=== PATIENT | female | born 1940 | race Caucasian/White ===

== ENCOUNTER 2020-03-20 09:31 | Outpatient (REF) | payer MEDICARE, SELFPAY ==
[2020-03-20 10:43] LABS: MANUAL DIFF FLAG NO
[2020-03-20 10:48] LABS: Basophils Percent Auto 0.5 % (0-2); Eosinophils Absolute Auto 0.4 X10*3/uL (0.0-0.4); Eosinophils Percent Auto 4.4 % (0-4); Hematocrit 38.8 % (37-47); Hemoglobin 12.2 g/dl (12.0-16.0); Imm Gran Abs Auto 0.02 X10*3/uL (0.00-0.03); Imm Gran Pct Auto 0.2 % (0.0-0.4); Lymphocytes Absolute Auto 2.2 X10*3/uL (1.2-4.9); Lymphocytes Percent Auto 24.9 % (20-40); Mean Corpuscular HGB Conc 31.4 g/dl (31.0-35.0); Mean Corpuscular Hemoglobin 31.8 pg (27.0-33.0); Mean Platelet Volume 9.9 fL (9.4-12.3); Monocytes Absolute Auto 0.4 X10*3/uL (0.1-1.2); Monocytes Percent Auto 4.9 % (2-11); Neutrophils Absolute Auto 5.7 X10*3/uL (2.0-8.3); Neutrophils Percent Auto 65.1 % (45-73); Platelet Count 237 X10*3/uL (160-400); Red Blood Count 3.84 X10*6/uL (4.20-5.50); Red Cell Distribution Width 13.1 % (11.0-16.0); White Blood Count 8.7 X10*3/uL (4.8-10.8)
[2020-03-20 11:08] LABS: Glucose Urine UA NEG (NEG); Leukocyte Esterase Urine 1+ (NEG); Nitrite Urine NEG (NEG); PH 5.5 (5.0-8.0); Urine Blood NEG (NEG); Urine Ketones NEG (NEG); Urine Protein NEG (NEG-TRACE)
[2020-03-20 11:09] LABS: Appearance Urine CLEAR; Color Urine STRAW
[2020-03-20 11:24] LABS: Bacteria Urine TRACE /LPF; RBC Urine 0 /HPF (0); Squamous Epithelial Cell Urine TRACE /LPF; WBC Urine 0-2 /HPF (0-4)
[2020-03-20 11:42] LABS: Alanine Aminotransferase 9 U/L (0-31); Alkaline Phosphatase 84 U/L (39-117); Anion Gap 11 (12-20); Aspartate Amino Transferase 14 U/L (5-31); Bilirubin Total 0.5 mg/dL (0.0-1.0); Blood Urea Nitrogen 16 mg/dL (9-16); Calcium 8.9 mg/dL (8.4-10.2); Carbon Dioxide 30 mmol/L (22-29); Chloride 102 mmol/L (96-108); Cholesterol 141 mg/dL; Estimated Glomerular Filt Rate > 60; Glucose Fasting 120 mg/dL (60-99); HDL Cholesterol 54 mg/dL; LDL Cholesterol Calculated 67 mg/dl; Potassium 4.2 mmol/l (3.3-5.1); Sodium 139 mmol/L (135-145); Total Protein 7.1 g/dL (6.5-8.0); Triglycerides 102 mg/dL
[2020-03-20 11:51] LABS: Free T4 (Free Thyroxine) 1.21 ng/dL (0.71-1.85); Thyroid Stimulating Hormone 4.29 mIU/mL (0.32-4.0); Vitamin D 25-OH Total 32.2 ng/mL (>30)
[2020-03-20 11:59] LABS: Creatinine Urine 23.78 mg/dL; Microalbumin Urine < 5.0 mg/L
[2020-03-20 12:18] LABS: Estimated Average Glucose 151 mg/dL; Hemoglobin A1c % 6.9 %
[2020-03-20 13:07] LABS: Folate 5.6 ng/mL (> or = 4.0); Vitamin B12 210 pg/mL (200-900)
== END 2020-03-20 09:32 | disposition home or self-care (01) ==
LOC: HO.LAB 09:31
PROVIDERS: PCP Internal Medicine; Visit Provider Internal Medicine
DX: E11.9 Type 2 diabetes mellitus without complications (principal); E78.00 Pure hypercholesterolemia, unspecified; I10 Essential (primary) hypertension; E03.9 Hypothyroidism, unspecified; E66.01 Morbid (severe) obesity due to excess calories; R20.2 Paresthesia of skin; J44.9 Chronic obstructive pulmonary disease, unspecified; G25.81 Restless legs syndrome; E55.9 Vitamin D deficiency, unspecified
CPT/HCPCS: 36415; 80053; 80061; 81001; 81003; 82043; 82306; 82607; 82746; 83036; 84439; 84443; 85025; 87086

== ENCOUNTER 2020-06-12 09:34 | Outpatient (REF) | payer MEDICARE, SELFPAY ==
[2020-06-12 10:24] LABS: MANUAL DIFF FLAG NO
[2020-06-12 10:32] LABS: Basophils Percent Auto 0.5 % (0-2); Eosinophils Absolute Auto 0.2 X10*3/uL (0.0-0.4); Eosinophils Percent Auto 2.2 % (0-4); Hematocrit 39.7 % (37-47); Hemoglobin 12.4 g/dl (12.0-16.0); Imm Gran Abs Auto 0.02 X10*3/uL (0.00-0.03); Imm Gran Pct Auto 0.2 % (0.0-0.4); Lymphocytes Absolute Auto 2.3 X10*3/uL (1.2-4.9); Lymphocytes Percent Auto 27.1 % (20-40); Mean Corpuscular HGB Conc 31.2 g/dl (31.0-35.0); Mean Corpuscular Volume 99.3 fL (80-98); Mean Platelet Volume 10.1 fL (9.4-12.3); Monocytes Absolute Auto 0.5 X10*3/uL (0.1-1.2); Monocytes Percent Auto 5.8 % (2-11); Neutrophils Absolute Auto 5.4 X10*3/uL (2.0-8.3); Neutrophils Percent Auto 64.2 % (45-73); Platelet Count 217 X10*3/uL (160-400); Red Cell Distribution Width 13.3 % (11.0-16.0); White Blood Count 8.3 X10*3/uL (4.8-10.8)
[2020-06-12 10:55] LABS: Estimated Average Glucose 166 mg/dL; Hemoglobin A1c % 7.4 %
[2020-06-12 11:01] LABS: Glucose Urine UA NEG (NEG); Leukocyte Esterase Urine NEG (NEG); Nitrite Urine NEG (NEG); Urine Blood TRACE (NEG); Urine Ketones NEG (NEG); Urine Protein NEG (NEG-TRACE)
[2020-06-12 11:08] LABS: Alanine Aminotransferase 8 U/L (0-31); Albumin Level 3.8 g/dL (3.5-5.0); Alkaline Phosphatase 89 U/L (39-117); Anion Gap 10 (12-20); Aspartate Amino Transferase 13 U/L (5-31); Bilirubin Total 0.4 mg/dL (0.0-1.0); Blood Urea Nitrogen 15 mg/dL (9-16); Calcium 8.5 mg/dL (8.4-10.2); Carbon Dioxide 36 mmol/L (22-29); Chloride 99 mmol/L (96-108); Cholesterol 137 mg/dL; Estimated Glomerular Filt Rate > 60; Glucose Fasting 115 mg/dL (60-99); HDL Cholesterol 50 mg/dL; LDL Cholesterol Calculated 66 mg/dl; Potassium 3.9 mmol/l (3.3-5.1); Sodium 141 mmol/L (135-145); Triglycerides 109 mg/dL
[2020-06-12 11:09] LABS: Appearance Urine CLEAR; Color Urine YELLOW
[2020-06-12 11:20] LABS: Microalbumin Urine < 5.0 mg/L
[2020-06-12 11:51] LABS: Mucus Urine TRACE /LPF; Squamous Epithelial Cell Urine 1+ /LPF
[2020-06-12 12:10] LABS: Free T4 (Free Thyroxine) 1.17 ng/dL (0.71-1.85); Thyroid Stimulating Hormone 4.22 uIU/mL (0.32-4.0); Vitamin D 25-OH Total 34.2 ng/mL (>30)
== END 2020-06-12 09:35 | disposition home or self-care (01) ==
LOC: HO.LAB 09:34
PROVIDERS: PCP Internal Medicine; Visit Provider Internal Medicine
DX: Z20.822 Contact with and (suspected) exposure to COVID-19 (principal); E11.9 Type 2 diabetes mellitus without complications; I10 Essential (primary) hypertension; J44.9 Chronic obstructive pulmonary disease, unspecified; E78.00 Pure hypercholesterolemia, unspecified; E03.9 Hypothyroidism, unspecified; E55.9 Vitamin D deficiency, unspecified
CPT/HCPCS: 36415; 80053; 80061; 81001; 81003; 82043; 82306; 83036; 84439; 84443; 85025; U0003

== ENCOUNTER 2020-07-08 | Outpatient (REF) | payer MEDICARE, SELFPAY | END 2020-07-08 00:01 | disposition home or self-care (01) | LOC: HO.VC | PROVIDERS: Visit Provider Internal Medicine | DX: Z23 Encounter for immunization (principal) | CPT/HCPCS: 0011A ==

== ENCOUNTER 2020-08-05 | Outpatient (REF) | payer MEDICARE, SELFPAY | END 2020-08-05 00:01 | disposition home or self-care (01) | LOC: HO.VC | PROVIDERS: Visit Provider Internal Medicine | DX: Z23 Encounter for immunization (principal) | CPT/HCPCS: 0012A ==

== ENCOUNTER 2020-11-05 15:35 | Outpatient (REF) | payer MEDICARE, SELFPAY ==
--- NOTE | ~2020-11-05 | XR_ITS ---
EXAMINATION: LEFT SHOULDER AND LEFT RIBS. CLINICAL INFORMATION: Seen. COMPARISON: None TECHNIQUE: 4 views left shoulder. 4 views chest and left RIBS. FINDINGS: Left shoulder: There is mild reduction of glenohumeral and AC joint space there is no visible acute fracture, dislocation or subluxation seen. The soft tissues are normal. Chest and left RIBS: The lungs are well-expanded and clear of acute process. Heart size and pulmonary vascularity is normal. Multiple views of left ribs reveal no visible fracture or bony abnormality. The soft tissues are unremarkable. XR/XR ribs LT min 3V w CXR1V IMPRESSION: Mild degenerative changes left shoulder. No visible acute fracture or dislocation seen. Unremarkable chest exam. No visible left rib fractures seen.
--- NOTE | ~2020-11-05 | XR_ITS ---
EXAMINATION: LEFT SHOULDER AND LEFT RIBS. CLINICAL INFORMATION: Seen. COMPARISON: None TECHNIQUE: 4 views left shoulder. 4 views chest and left RIBS. FINDINGS: Left shoulder: There is mild reduction of glenohumeral and AC joint space there is no visible acute fracture, dislocation or subluxation seen. The soft tissues are normal. Chest and left RIBS: The lungs are well-expanded and clear of acute process. Heart size and pulmonary vascularity is normal. Multiple views of left ribs reveal no visible fracture or bony abnormality. The soft tissues are unremarkable. XR/XR shoulder LT min 2V IMPRESSION: Mild degenerative changes left shoulder. No visible acute fracture or dislocation seen. Unremarkable chest exam. No visible left rib fractures seen.
== END 2020-11-05 15:36 | disposition home or self-care (01) ==
LOC: HO.XRAY 15:35
PROVIDERS: PCP Internal Medicine; Visit Provider Internal Medicine
DX: R07.81 Pleurodynia (principal); M25.511 Pain in right shoulder
CPT/HCPCS: 71101; 73030

== ENCOUNTER 2021-06-17 10:07 | Outpatient (REF) | payer MEDICARE, SELFPAY ==
--- NOTE | ~2021-06-17 | MM_ITS ---
EXAMINATION: MM SCREENING DIGITAL BREAST TOMOSYNTHESIS, BILATERAL CLINICAL INFORMATION: Screening. Asymptomatic. The lifetime risk of breast cancer based on the Tyrer-Cuzick Model is 1.0%. COMPARISON: Mammography: June 09, 2016 and studies dating back to January 10, 2012 TECHNIQUE: Digital breast tomosynthesis is performed in both the craniocaudal and mediolateral oblique views along with computer-aided detection (CAD). Synthesized 2D images are generated from the tomosynthesis. FINDINGS: The breasts are almost entirely fatty (ACR BI-RADS breast composition Category a). There are no significant masses, abnormal calcifications, or other abnormalities. MM/MM tomosynthesis screening BI IMPRESSION: There are no significant changes from prior study. ASSESSMENT: BI-RADS 1: Negative RECOMMENDATION: Routine annual mammography screening. This patient's information was entered into a reminder system with a target due date for their next mammogram.
--- NOTE | ~2021-06-17 | MM_ITS ---
EXAMINATION: BONE DENSITOMETRY CLINICAL INDICATION: Asymptomatic menopausal state. COMPARISON: Baseline BD dated 09/16/2008. TECHNIQUE: Using a [employer] DXA System (software version: 13.1) manufactured by [employer], dual-energy x-ray absorptiometry was performed of the lumbar spine and right hip. The images are of good technical quality. Summary results are attached. FINDINGS: AP SPINE L1-L4: There is mild dextrocurvature and multilevel degenerative changes which may cause overestimation of the lumbar bone mineral density. Current: BMD 1.514 g/cm2, Z-score 3.8, T-score 2.8, normal, 27.2% increase from baseline (<5% change is not significant). Baseline: BMD 1.190 g/cm2. RIGHT FEMUR, NECK: Current: BMD 0.520 g/cm2, Z-score -2.2, T-score -3.7, osteoporosis. Baseline: BMD 0.696 g/cm2. RIGHT FEMUR, TOTAL: Current: BMD 0.462 g/cm2, Z-score -3.0, T-score -4.3, osteoporosis, 40.1% decrease from baseline (<5% change is not significant). Baseline: BMD 0.771 g/cm2. IDENTIFIED RISK FACTORS: Rheumatoid arthritis, history of fracture (adult), height loss, low calcium intake, family history (parental hip fracture). Early menopause, secondary osteoporosis. HISTORY OF FRACTURE: Femur/hip. Elbow. MEDICATIONS: Calcium supplements or multivitamin, vitamin D. MM/XR DEXA axial skeleton IMPRESSION: 1. DIAGNOSIS: Osteoporosis based on the lowest T-score value of -4.3 in the total femur applying World Health Organization criteria. 2. 10-YEAR FRACTURE RISK PREDICTION, FRAX: According to the guidelines, FRAX calculation should only be performed on patients in the osteopenia bone density category. 3. Treatment Recommendations: NOF guidelines recommend consideration for treatment in postmenopausal women and men age 50 and older presenting with the following: -A hip or vertebral (clinical or morphometric) fracture. -T-score less than or equal to -2.5 at the femoral neck or spine after appropriate evaluation to exclude secondary causes. -Low bone mass at the hip or spine and a 10-year fracture probability by FRAX of greater than or equal to 3% for hip fracture or greater than or equal to 20% for major osteoporotic fracture based on the [place] adapted WHO algorithm. 4. Other Recommendations: All treatment decisions require clinical judgment and consideration of individual patient factors, including patient preferences, comorbidities, previous drug use, risk factors not captured in the FRAX model (e.g. frailty, falls, vitamin D deficiency, increased bone turnover, interval significant decline in bone density) and possible under or overestimation of fracture risk by FRAX. Additional medical evaluation for secondary cause of low bone mineral density may be appropriate. FUTURE SCAN RECOMMENDATION: People with diagnosed cases of osteoporosis or at high risk for fracture should have regular bone mineral density tests. For patients eligible for Medicare, routine testing is allowed once every 2 years. The testing frequency can be increased to one year for patients who have rapidly progressing disease, those who are receiving or discontinuing medical therapy to restore bone mass, or have additional risk factors.
== END 2021-06-17 10:08 | disposition home or self-care (01) ==
LOC: HO.MAMMO 10:07
PROVIDERS: Visit Provider Nurse Practitioner Family
DX: Z12.31 Encounter for screening mammogram for malignant neoplasm of breast (principal); Z13.820 Encounter for screening for osteoporosis; M81.0 Age-related osteoporosis without current pathological fracture; Z78.0 Asymptomatic menopausal state; Z79.899 Other long term (current) drug therapy; Z87.81 Personal history of (healed) traumatic fracture
CPT/HCPCS: 77063; 77067; 77080

== ENCOUNTER 2021-07-27 08:56 | Outpatient (REF) | payer MEDICARE, SELFPAY ==
[2021-07-27 09:23] LABS: MANUAL DIFF FLAG NO
[2021-07-27 09:45] LABS: Basophils Percent Auto 0.4 % (0-2); Eosinophils Absolute Auto 0.3 X10*3/uL (0.0-0.4); Eosinophils Percent Auto 3.3 % (0-4); Hematocrit 40.4 % (37.0-47.0); Hemoglobin 12.6 g/dl (12.0-16.0); Imm Gran Abs Auto 0.05 X10*3/uL (0.00-0.03); Imm Gran Pct Auto 0.5 % (0.0-0.4); Lymphocytes Absolute Auto 2.4 X10*3/uL (1.2-4.9); Lymphocytes Percent Auto 26.1 % (20-40); Mean Corpuscular HGB Conc 31.2 g/dl (31.0-35.0); Mean Corpuscular Hemoglobin 30.9 pg (27.0-33.0); Mean Platelet Volume 9.8 fL (9.4-12.3); Monocytes Absolute Auto 0.5 X10*3/uL (0.1-1.2); Monocytes Percent Auto 5.7 % (2-11); Neutrophils Absolute Auto 5.9 x10*3/uL (2.0-8.3); Platelet Count 230 X10*3/uL (160-400); Red Blood Count 4.08 X10*6/uL (4.20-5.50); Red Cell Distribution Width 13.3 % (11.0-16.0); White Blood Count 9.2 X10*3/uL (4.8-10.8)
[2021-07-27 10:00] LABS: Estimated Average Glucose 192 mg/dL; Hemoglobin A1c % 8.3 %
[2021-07-27 10:09] LABS: Alanine Aminotransferase 7 U/L (0-31); Albumin Level 3.9 g/dL (3.5-5.0); Alkaline Phosphatase 80 U/L (39-117); Anion Gap 13 (12-20); Aspartate Amino Transferase 14 U/L (5-31); Bilirubin Total 0.4 mg/dL (0.0-1.0); Blood Urea Nitrogen 14 mg/dL (9-16); Calcium 9.3 mg/dL (8.4-10.2); Carbon Dioxide 30 mmol/L (22-29); Chloride 100 mmol/L (96-108); Cholesterol 143 mg/dL; Estimated Glomerular Filt Rate 53; Glucose Fasting 154 mg/dL (60-99); HDL Cholesterol 51 mg/dL; LDL Cholesterol Calculated 69 mg/dl; Potassium 4.2 mmol/L (3.3-5.1); Sodium 139 mmol/L (135-145); Total Protein 7.4 g/dL (6.5-8.0); Triglycerides 119 mg/dL
[2021-07-27 10:28] LABS: Appearance Urine CLOUDY; Color Urine YELLOW; Glucose Urine UA NEG (NEG); Leukocyte Esterase Urine 3+ (NEG); Nitrite Urine NEG (NEG); PH 5.5 (5.0-8.0); Specific Gravity - Urine <= 1.005 (1.005-1.025); UACC Culture Trigger YES; Urine Blood TRACE (NEG); Urine Ketones NEG (NEG); Urine Protein NEG (NEG-TRACE)
[2021-07-27 10:32] LABS: Free T4 (Free Thyroxine) 1.04 ng/dL (0.71-1.85); Thyroid Stimulating Hormone 5.72 uIU/mL (0.32-4.0)
[2021-07-27 10:55] LABS: Folate 3.7 ng/mL (> or = 4.0); Vitamin B12 247 pg/mL (200-900)
[2021-07-27 11:14] LABS: Creatinine Urine 18.63 mg/dL; Microalbum/Creatinine Ratio Ur 69.7 ug/mg cr
[2021-07-27 11:29] LABS: Bacteria Urine 3+ /LPF; RBC Urine 0 /HPF (0); Squamous Epithelial Cell Urine 2+ /LPF; WBC Urine 30-49 /HPF (0-4)
[2021-07-27 11:30] LABS: Mucus Urine 1+ /LPF
== END 2021-07-27 08:57 | disposition home or self-care (01) ==
LOC: HO.LAB 08:56
PROVIDERS: PCP Internal Medicine; Visit Provider Internal Medicine
DX: I10 Essential (primary) hypertension (principal); E78.00 Pure hypercholesterolemia, unspecified; E11.9 Type 2 diabetes mellitus without complications; E03.9 Hypothyroidism, unspecified; E53.8 Deficiency of other specified B group vitamins; E55.9 Vitamin D deficiency, unspecified
CPT/HCPCS: 36415; 80053; 80061; 81001; 82043; 82306; 82607; 82746; 83036; 84439; 84443; 85025; 87086

== ENCOUNTER 2022-02-14 09:12 | Outpatient (REF) | payer MEDICARE, SELFPAY ==
--- NOTE | ~2022-02-14 | XR_ITS ---
EXAMINATION: XR FEMUR, RIGHT CLINICAL INFORMATION: Pain COMPARISON: None TECHNIQUE: AP and lateral views of the right femur were obtained. FINDINGS: There is a 2 component right knee replacement that appears in satisfactory position. No fracture or dislocation is seen. There is mild arthritis at the right hip joint with small osteophytes. There is evidence of severe atherosclerotic disease. There may be a pessary in the pelvis. XR/XR femur RT 2V IMPRESSION: Mild right hip arthritis. Right knee replacement. Severe atherosclerotic disease.
[2022-02-14 09:36] LABS: MANUAL DIFF FLAG NO
[2022-02-14 09:49] LABS: Basophils Percent Auto 0.4 % (0-2); Eosinophils Absolute Auto 0.2 X10*3/uL (0.0-0.4); Hematocrit 38.1 % (37.0-47.0); Hemoglobin 11.9 g/dl (12.0-16.0); Imm Gran Abs Auto 0.03 X10*3/uL (0.00-0.03); Imm Gran Pct Auto 0.4 % (0.0-0.4); Lymphocytes Absolute Auto 1.7 X10*3/uL (1.2-4.9); Lymphocytes Percent Auto 20.7 % (20-40); Mean Corpuscular HGB Conc 31.2 g/dl (31.0-35.0); Mean Corpuscular Hemoglobin 30.9 pg (27.0-33.0); Mean Platelet Volume 9.8 fL (9.4-12.3); Monocytes Absolute Auto 0.5 X10*3/uL (0.1-1.2); Monocytes Percent Auto 5.4 % (2-11); Neutrophils Percent Auto 71.1 % (45-73); Platelet Count 177 X10*3/uL (160-400); Red Blood Count 3.85 X10*6/uL (4.20-5.50); Red Cell Distribution Width 13.5 % (11.0-16.0); White Blood Count 8.4 X10*3/uL (4.8-10.8)
[2022-02-14 10:14] LABS: Estimated Average Glucose 148 mg/dL; Hemoglobin A1c % 6.8 %
[2022-02-14 10:38] LABS: Free T4 (Free Thyroxine) 1.28 ng/dL (0.71-1.85); Thyroid Stimulating Hormone 2.04 uIU/mL (0.32-4.0); Vitamin D 25-OH Total 40.8 ng/mL (>30)
[2022-02-14 10:43] LABS: Alanine Aminotransferase 13 U/L (0-31); Albumin Level 3.8 g/dL (3.5-5.0); Alkaline Phosphatase 72 U/L (39-117); Anion Gap 15 (12-20); Aspartate Amino Transferase 17 U/L (5-31); Bilirubin Total 0.3 mg/dL (0.0-1.0); Blood Urea Nitrogen 12 mg/dL (9-16); Calcium 8.8 mg/dL (8.4-10.2); Carbon Dioxide 29 mmol/L (22-29); Chloride 102 mmol/L (96-108); Cholesterol 133 mg/dL; Estimated Glomerular Filt Rate > 60; Glucose Fasting 129 mg/dL (60-99); HDL Cholesterol 55 mg/dL; LDL Cholesterol Calculated 65 mg/dl; Potassium 4.5 mmol/L (3.3-5.1); Sodium 141 mmol/L (135-145); Triglycerides 69 mg/dL
[2022-02-14 11:01] LABS: Appearance Urine Clear; Color Urine Yellow; Glucose Urine UA Negative (Negative); Leukocyte Esterase Urine Large (3+) (Negative); Nitrite Urine Negative (Negative); PH 5.5 (5.0-9.0); Urine Blood Negative (Negative); Urine Ketones Negative (Negative); Urine Protein Negative (Neg-Trace)
[2022-02-14 11:07] LABS: Bacteria Urine 2+ (None Seen); Hyaline Casts Urine 0-2 /LPF (0-2); RBC Urine 0-2 /HPF (0-2); UACC Culture Trigger YES
[2022-02-14 11:21] LABS: Creatinine Urine 41.31 mg/dL; Microalbum/Creatinine Ratio Ur 12.1 ug/mg cr
== END 2022-02-14 09:13 | disposition home or self-care (01) ==
LOC: HO.LAB 09:12
PROVIDERS: PCP Internal Medicine; Visit Provider Internal Medicine
DX: E78.00 Pure hypercholesterolemia, unspecified (principal); E03.9 Hypothyroidism, unspecified; E55.9 Vitamin D deficiency, unspecified; I10 Essential (primary) hypertension; E11.9 Type 2 diabetes mellitus without complications; M25.551 Pain in right hip; M79.604 Pain in right leg; Z91.81 History of falling
CPT/HCPCS: 36415; 73552; 80053; 80061; 81001; 81003; 82043; 82306; 83036; 84439; 84443; 85025; 87086

== ENCOUNTER 2022-06-09 08:45 | Outpatient (REF) | payer MEDICARE, SELFPAY ==
[2022-06-09 08:57] LABS: MANUAL DIFF FLAG NO
[2022-06-09 09:06] LABS: Basophils Percent Auto 0.3 % (0-2); Eosinophils Absolute Auto 0.4 X10*3/uL (0.0-0.4); Eosinophils Percent Auto 3.4 % (0-4); Hematocrit 41.6 % (37.0-47.0); Hemoglobin 12.7 g/dl (12.0-16.0); Imm Gran Abs Auto 0.03 X10*3/uL (0.00-0.03); Imm Gran Pct Auto 0.3 % (0.0-0.4); Lymphocytes Absolute Auto 2.6 X10*3/uL (1.2-4.9); Lymphocytes Percent Auto 23.7 % (20-40); Mean Corpuscular HGB Conc 30.5 g/dl (31.0-35.0); Mean Corpuscular Hemoglobin 30.4 pg (27.0-33.0); Mean Corpuscular Volume 99.5 fL (80.0-98.0); Mean Platelet Volume 9.8 fL (9.4-12.3); Monocytes Absolute Auto 0.6 X10*3/uL (0.1-1.2); Monocytes Percent Auto 5.9 % (2-11); Neutrophils Absolute Auto 7.3 x10*3/uL (2.0-8.3); Neutrophils Percent Auto 66.4 % (45-73); Platelet Count 211 X10*3/uL (160-400); Red Blood Count 4.18 X10*6/uL (4.20-5.50); Red Cell Distribution Width 14.2 % (11.0-16.0); White Blood Count 10.9 X10*3/uL (4.8-10.8)
[2022-06-09 09:41] LABS: Alanine Aminotransferase 8 U/L (0-31); Albumin Level 3.8 g/dL (3.5-5.0); Alkaline Phosphatase 80 U/L (39-117); Anion Gap 13 (12-20); Aspartate Amino Transferase 14 U/L (5-31); Bilirubin Total 0.5 mg/dL (0.0-1.0); Blood Urea Nitrogen 13 mg/dL (9-16); Calcium 9.3 mg/dL (8.4-10.2); Carbon Dioxide 32 mmol/L (22-29); Chloride 102 mmol/L (96-108); Cholesterol 140 mg/dL; Estimated Glomerular Filt Rate 55; Glucose Fasting 111 mg/dL (60-99); HDL Cholesterol 61 mg/dL; LDL Cholesterol Calculated 60 mg/dl; Potassium 3.8 mmol/L (3.3-5.1); Sodium 143 mmol/L (135-145); Total Protein 7.2 g/dL (6.5-8.0); Triglycerides 97 mg/dL
[2022-06-09 09:59] LABS: Free T4 (Free Thyroxine) 1.18 ng/dL (0.71-1.85); Thyroid Stimulating Hormone 6.13 uIU/mL (0.32-4.0); Vitamin D 25-OH Total 38.1 ng/mL (>30)
[2022-06-09 10:28] LABS: Estimated Average Glucose 163 mg/dL; Hemoglobin A1c % 7.3 %
== END 2022-06-09 08:46 | disposition home or self-care (01) ==
LOC: HO.LAB 08:45
PROVIDERS: PCP Internal Medicine; Visit Provider Internal Medicine
DX: E03.9 Hypothyroidism, unspecified (principal); E11.9 Type 2 diabetes mellitus without complications; I10 Essential (primary) hypertension; E55.9 Vitamin D deficiency, unspecified; E78.00 Pure hypercholesterolemia, unspecified
CPT/HCPCS: 36415; 80053; 80061; 82306; 83036; 84439; 84443; 85025

== ENCOUNTER 2022-10-07 13:21 | Outpatient (REF) | payer MEDICARE, SELFPAY ==
[2022-10-07 15:57] LABS: TSH reflex Free T4 3.15 uIU/mL (0.32-4.0)
[2022-10-07 16:24] LABS: Appearance Urine Cloudy; Color Urine Yellow; Glucose Urine UA Negative (Negative); Leukocyte Esterase Urine Small (1+) (Negative); Nitrite Urine Negative (Negative); UMIC TRIGGER UACC YES; Urine Blood Negative (Negative); Urine Ketones Negative (Negative); Urine Protein Negative (Neg-Trace)
[2022-10-07 17:21] LABS: Bacteria Urine 1+ (None Seen); Hyaline Casts Urine 0-2 /LPF (0-2); RBC Urine 0-2 /HPF (0-2); Squamous Epithelial Cell Urine 0-2 /HPF (0-2); UACC Culture Trigger YES; WBC Urine 0-5 /HPF (0-5)
== END 2022-10-07 13:22 | disposition home or self-care (01) ==
LOC: HO.LAB 13:21
PROVIDERS: Nurse Practitioner Family; PCP Internal Medicine; Visit Provider Internal Medicine
DX: E03.9 Hypothyroidism, unspecified (principal); R82.90 Unspecified abnormal findings in urine
CPT/HCPCS: 36415; 81001; 84443; 87086

== ENCOUNTER → 2022-11-16 09:07 | Outpatient (BNVA) | payer MEDICARE, SELFPAY | PROVIDERS: PCP Internal Medicine; Visit Provider Anesthesiology | DX: M79.662 Pain in left lower leg (principal); M25.552 Pain in left hip; M54.50 Low back pain, unspecified; Z96.653 Presence of artificial knee joint, bilateral; G89.4 Chronic pain syndrome | CPT/HCPCS: 99202 ==

== ENCOUNTER 2022-12-16 07:16 | Outpatient (AMB) | payer MEDICARE, SELFPAY ==
--- NOTE | 2022-12-16 07:21 | A.OFFPC_ITS ---
Vital Signs 12/16/22 07:22 Height 5 ft 1 in BMI Reason not done Patient refused/unable BP 134/72 Blood Pressure Location Lt brachial Position Sitting Pulse 64 Pulse Source Pulse Oximeter Pulse Oximetry (%) 94 Oxygen Delivery Method Room Air Intake Visit Reasons: left arm pain, mole on back Allergies No Known Allergies Allergy (Unknown, Verified 12/16/22 07:22) Tobacco use date assessed: 06/24/22 Fall risk assessment: No Falls in past year Last assessed Fall Risk: 12/16/22 Dental Screening Dental Screen Date: 12/16/22 Did you have a dental visit in the last 12 months?: No Did you have a dental problem in the last 6 months where you did not have access to dental care?: No Was dental information given to patient?: No (Dentures) HPI HPI Comments History of Present Illness Details 82-year-old female with history insomnia, restless legs syndrome, vitamin-D deficiency, hypercholesteremia, hypothyroidism, hypertension, COPD, type 2 diabetes mellitus[address] Patient Dr[address] Escamilla last seen in October. Patient presents today for stiff neck and left are pain x 2weeks. Patient does report some mild numbness in her fingertips. Denies injury or falling. Patient takes tramadol and fentanyl patches and I see a cream with relief of pain. Patient also concern for new large circular brown nevus to left thoracic back area. Will refer to Dermatology for further evaluation and possible removal. [facility] Medical History Acquired hypothyroidism Benign essential hypertension Benign paroxysmal vertigo Carpal tunnel syndrome of left wrist Closed displaced intertrochanteric fracture of left femur with routine healing COPD (chronic obstructive pulmonary disease) Cough Exposure to COVID-19 virus Morbid obesity with BMI of 40.0-44.9, adult Obesity (BMI 30-39.9) Painful respiration Paresthesia of both feet Post-menopausal Primary insomnia Primary osteoarthritis of both knees Pure hypercholesterolemia Restless leg syndrome Screening for breast cancer Type 2 diabetes mellitus without complication, without long-term current use of insulin Vitamin D deficiency Surgical History History of carpal tunnel release History of cervical discectomy History of cholecystectomy History of colonoscopy History of elbow surgery History of lumbar discectomy History of surgery History of total knee arthroplasty History of total left knee replacement Family History Father No problems noted. Mother No problems noted. Social History Housing: House Alcohol intake: former Patient Tobacco Use Status: Former Tobacco user Quit Date: 13 years ago Tobacco use type: Cigarette e-Cigarette/Vaping Use: Never Used Second Hand Smoke Exposure: Yes service: Yes Current occupational status: retired Cognitive needs: Yes Hearing needs: Yes Vision needs: Yes Questionnaire PHQ-9 Over the last 2 weeks, how often have you been bothered by any of the following problems? 1. Little interest or pleasure in doing things: nearly every day (loss of family member ) 2. Feeling down, depressed, or hopeless: nearly every day 3. Trouble falling or staying asleep, or sleeping too much: nearly every day 4. Feeling tired or having little energy: nearly every day 5. Poor appetite or overeating: nearly every day 6. Feeling bad about yourself - or that you are a failure or have let yourself or your family down: nearly every day 7. Trouble concentrating on things, such as reading the newspaper or watching television: nearly every day 8. Moving or speaking so slowly that other people could have noticed. Or the opposite - being so fidgety or restless that you have been moving around a lot more than usual: nearly every day 9. Thoughts that you would be better off or of hurting yourself in some way: not at all Total score: 24 Depression Screening Interpretation: Positive Depression Screening Follow-up: Existing condition and In treatment 30777 - PHQ-9 Billing: Yes Source: Developed by Drs. Be Jang, Kristel Bustamante, Govind Rene and colleagues, with an educational wendie from [employer]. Thrive Questionnaire Date Thrive assessed: 06/24/22 AUDIT C Alcohol Use Questionnaire (AUDIT-C) 1. How often do you have a drink containing alcohol?: Never 2. How many drinks containing alcohol do you have on a typical day when you are drinking?: 1 or 2 (0) 3. How often do you have six or more drinks on one occasion?: Never Total Score: 0 Score Reviewed/Action Taken: Yes JUNE-7 AMB Questionnaire JUNE-7 Date JUNE - 7 assessed: 06/24/22 Source: Developed by Drs. Be Jang, Kristel Bustamante, Govind Rene and colleagues, with an educational wendie from [employer]. Review of Systems Const Denies chills, Denies fatigue, Denies fever(s) and Denies poor appetite Eyes Denies no additional complaints ENT Reports Normal hearing present and Reports neck pain (stiff neck) Card Denies chest pain, Denies syncope, Denies rapid heart rate and Denies dyspnea Resp Denies cough and Denies dyspnea GI Denies change in stool character, Denies constipation, Denies diarrhea, Denies nausea and Denies vomiting Denies urinary frequency, Denies dysuria and Denies urinary urgency Musc Reports neck pain (stiff neck) and Reports radiating pain into limb (radiating down left arm) Skin/Breast Details: new large mole to left back Neuro Reports Normal hearing present, Denies confusion and Denies syncope Psych Denies confusion Endo Denies fatigue Physical exam (Primary Care) Vital Signs: Last Vital Signs Pulse 64 12/16/22 07:22 BP 134/72 12/16/22 07:22 Pulse Ox 94 12/16/22 07:22 Oxygen Delivery Method Room Air 12/16/22 07:22 Tobacco/Smoking Status: Tobacco use Status Tobacco use date assessed 06/24/22 12/16/22 07:27 Patient Tobacco Use Status Former Tobacco user 12/16/22 07:27 Tobacco use type Cigarette 12/16/22 07:27 e-Cigarette/Vaping Use Never Used 12/16/22 07:27 PHQ-9: PHQ-9 Score PHQ-9: Total score 24 12/16/22 07:34 Depression Screening Interpretation: Positive Depression Screening Follow-up: Existing condition and In treatment Thrive Assessment: Date of Thrive Assessment Date Thrive assessed 06/24/22 12/16/22 07:27 Const General: No confusion Orientation/consciousness: No confusion HENMT Head: Yes normocephalic and Yes atraumatic Eyes Conjunctivae: conjunctivae normal Chest Chest palpation & inspection: normal inspection of the chest Resp Effort & Inspection: normal respiratory effort Auscultation: clear to auscultation bilaterally, no crackles, no rhonchi and no wheezes Cardio Rate: regular rate Rhythm: regular rhythm Heart sounds: S1 normal heart sound present and S2 normal heart sound present GI Inspection: Yes normal to inspection Back/Spine/Pelvis Cervical Spine: normal cervical lordosis, cervical ROM normal, cervical muscular tenderness (on left side ), No Cervical spine tenderness and No step off deformity Thoracic/Lumbar Spine: thoracic and lumbar spine normal to inspection Skin Full body images: 1. annular raised dark brown nevi 2. irregular oval shape raised dark brow nevi Neuro General: No confusion Cranial nerves: Yes Normal hearing present Extrem General: No edema Right upper extremity: normal to inspection and full ROM Left upper extremity: normal to inspection and shoulder/upper arm Details: abnormal ROM Details: pain with active ROM Details: in ABduction and in internal rotation and pain with passive ROM Details: in ABduction and in internal rotation; no tenderness and no swelling Assessment and Plan Assessment & Plan (1) Atypical nevus of back: Code(s): D22.5 - Melanocytic nevi of trunk Plan: Referral entered to dermatology for further evaluation and possible removal of two new atypical nevi present patient's back. (2) Cervical muscle pain: Code(s): M54.2 - Cervicalgia Plan: Refill sent a patient's tramadol about half of Dr. Escamilla. Patient's fentanyl patchesl were refilled [address] Garcia. Patient advised to apply heat to help relax muscles, recommended physical therapy however patient declines at this time due to transportation troubles. Signs and symptoms reviewed with patient when to follow-up with PCP (3) Type 2 diabetes mellitus without complication, without long-term current use of insulin: Code(s): E11.9 - Type 2 diabetes mellitus without complications Plan: Continue on current medications. Follow low carbohydrate diet. (4) Benign essential hypertension: Code(s): I10 - Essential (primary) hypertension Plan: Pressure below goal today 134/72 Follow low-salt diet exercise. Plan Keep scheduled appointment with Dr. Escamilla in February or follow up sooner if needed. Orders: Referrals Dermatology Referral D22.5 - Melanocytic nevi of trunk Medications: Changed From tramadol 100 mg (2 x 50 mg) PO TID 30 days PRN 180 tabs 0RF pain To tramadol Covering for Dr. Escamilla 100 mg (2 x 50 mg) PO TID 30 days PRN 180 tabs 0RF pain Refilled tramadol 100 mg (2 x 50 mg) PO TID 30 days PRN 180 tabs 0RF pain Coding Level of Care Code Est Pt Level 4 (93968) Diagnoses Atypical nevus of back D22.5 Cervical muscle pain M54.2 Type 2 diabetes mellitus without complication, without long-term current use of insulin E11.9 Benign essential hypertension I10
[2022-12-16 07:22] VITALS: BP 134/72; PULSE 64; O2SAT 94
== END 2022-12-16 07:47 | disposition home or self-care (01) ==
PROVIDERS: PCP Internal Medicine; Visit Provider Nurse Practitioner Family
DX: D22.5 Melanocytic nevi of trunk (principal); M54.2 Cervicalgia; E11.9 Type 2 diabetes mellitus without complications; I10 Essential (primary) hypertension
CPT/HCPCS: 99214

== ENCOUNTER 2023-01-09 10:15 | Outpatient (REF) | payer MEDICARE, SELFPAY ==
[2023-01-09 10:40] LABS: MANUAL DIFF FLAG NO
[2023-01-09 11:44] LABS: Basophils Percent Auto 0.5 % (0-2); Eosinophils Absolute Auto 0.1 X10*3/uL (0.0-0.4); Eosinophils Percent Auto 1.4 % (0-4); Hematocrit 40.9 % (37.0-47.0); Imm Gran Abs Auto 0.03 X10*3/uL (0.00-0.03); Imm Gran Pct Auto 0.4 % (0.0-0.4); Lymphocytes Absolute Auto 1.8 X10*3/uL (1.2-4.9); Lymphocytes Percent Auto 21.6 % (20-40); Mean Corpuscular HGB Conc 31.8 g/dl (31.0-35.0); Mean Corpuscular Hemoglobin 30.7 pg (27.0-33.0); Mean Corpuscular Volume 96.5 fL (80.0-98.0); Mean Platelet Volume 10.3 fL (9.4-12.3); Monocytes Absolute Auto 0.5 X10*3/uL (0.1-1.2); Monocytes Percent Auto 5.4 % (2-11); Neutrophils Percent Auto 70.7 % (45-73); Platelet Count 212 X10*3/uL (160-400); Red Blood Count 4.24 X10*6/uL (4.20-5.50); Red Cell Distribution Width 13.8 % (11.0-16.0); White Blood Count 8.5 X10*3/uL (4.8-10.8)
[2023-01-09 12:03] LABS: Appearance Urine Clear; Color Urine Yellow; Glucose Urine UA Negative (Negative); Leukocyte Esterase Urine Moderate (2+) (Negative); Nitrite Urine Negative (Negative); PH 6.5 (5.0-9.0); Specific Gravity - Urine <= 1.005 (1.005-1.025); UMIC TRIGGER UACC YES; Urine Blood Negative (Negative); Urine Ketones Negative (Negative); Urine Protein Negative (Neg-Trace)
[2023-01-09 12:07] LABS: Bacteria Urine 1+ (None Seen); Hyaline Casts Urine 0-2 /LPF (0-2); RBC Urine 0-2 /HPF (0-2); UACC Culture Trigger YES
[2023-01-09 12:09] LABS: Estimated Average Glucose 174 mg/dL; Hemoglobin A1c % 7.7 %
[2023-01-09 12:34] LABS: Alanine Aminotransferase 10 U/L (0-31); Albumin Level 3.7 g/dL (3.5-5.0); Alkaline Phosphatase 79 U/L (39-117); Anion Gap 16 (12-20); Aspartate Amino Transferase 15 U/L (5-31); Bilirubin Total 0.4 mg/dL (0.0-1.0); Blood Urea Nitrogen 13 mg/dL (9-16); Calcium 9.6 mg/dL (8.4-10.2); Carbon Dioxide 26 mmol/L (22-29); Chloride 102 mmol/L (96-108); Cholesterol 121 mg/dL; Estimated Glomerular Filt Rate > 60; Glucose Fasting 171 mg/dL (60-99); HDL Cholesterol 48 mg/dL; LDL Cholesterol Calculated 48 mg/dl; Potassium 3.8 mmol/L (3.3-5.1); Sodium 140 mmol/L (135-145); Total Protein 7.5 g/dL (6.5-8.0); Triglycerides 126 mg/dL
[2023-01-09 12:41] LABS: TSH reflex Free T4 1.93 uIU/mL (0.32-4.0); Vitamin D 25-OH Total 42.8 ng/mL (>30)
[2023-01-09 13:07] LABS: Folate 6.5 ng/mL (> or = 4.0); Vitamin B12 215 pg/mL (200-900)
[2023-01-09 13:23] LABS: Creatinine Urine 11.61 mg/dL; Microalbumin Urine < 5.0 mg/L
== END 2023-01-09 10:16 | disposition home or self-care (01) ==
LOC: HO.LAB 10:15
PROVIDERS: PCP Internal Medicine; Visit Provider Internal Medicine
DX: I10 Essential (primary) hypertension (principal); E53.8 Deficiency of other specified B group vitamins; E78.00 Pure hypercholesterolemia, unspecified; R30.0 Dysuria; E55.9 Vitamin D deficiency, unspecified; E11.9 Type 2 diabetes mellitus without complications
CPT/HCPCS: 36415; 80053; 80061; 81001; 81003; 82043; 82306; 82607; 82746; 83036; 84443; 85025; 87086

== ENCOUNTER 2023-04-05 10:50 | Outpatient (AMB) | payer MEDICARE, SELFPAY ==
[2023-04-05 10:52] VITALS: BP 132/70; PULSE 68; O2SAT 99; BMI 35.7
--- NOTE | 2023-04-05 10:52 | AM.OFFVISMDC ---
Intake Vital Signs 04/05/23 10:52 Height 5 ft 1 in Weight 189 lb BMI 35.7 BP 132/70 Blood Pressure Location Lt brachial Position Sitting Pulse 68 Pulse Source Pulse Oximeter Pulse Oximetry (%) 99 Oxygen Delivery Method Room Air Intake Visit Reasons: SWV G0439 Intake Note: Patient is here for an Annual Wellness Visit. Ip Attorney Required: No Allergies No Known Allergies Allergy (Unknown, Verified 04/05/23 11:25) Medication List - Last Reconciled 04/05/23 by LEATHA Faria albuterol sulfate 90 mcg/actuation 2 puffs inhalation Q4-6H PRN albuterol sulfate USE 1 VIAL IN NEBULIZER EVERY 6 HOURS - As needed for shortness of breath or wheezing apixaban (Eliquis) 5 mg PO BID cholecalciferol (vitamin D3) 2,000 units PO DAILY fentanyl 25 mcg/hr 1 patch transdermal Q72H 15 days furosemide 20 mg PO DAILY gabapentin 300 mg PO TID glimepiride 2 mg PO QAM 90 days levothyroxine 50 mcg PO QAM linagliptin (Tradjenta) 5 mg PO DAILY lorazepam 0.5 mg PO TID PRN 30 days [NEBULIZER As directed] ropinirole 4 mg PO BEDTIME rosuvastatin 10 mg PO DAILY 90 days tramadol 100 mg (2 x 50 mg) PO TID PRN 30 days trazodone Take 1 to 2 tablets orally once a day at bedtime as needed 90 days Trelegy Ellipta 200-62.5-25 mcg (oxvfjdlgdkz-dpltsdnsy-negwmtyb) 1 inh inhalation DAILY NS HPI SWV G0439 HPI Details Patient is an 83-year-old female who presents today for subsequent wellness visit. Patient of Dr. Escamilla. Patient is up-to-date with her health preventative screenings and immunizations. Bone density screen 06/2021 with osteoporosis. [place] of care was reviewed with the patient and she was provided with a screening schedule. Patient has a healthcare proxy in place and she will provide office with copy, patient was provided with a MOLST form. [facility] Medical History Atypical nevus of back Cough Post-menopausal Screening for breast cancer Painful respiration Obesity (BMI 30-39.9) Benign paroxysmal vertigo Exposure to COVID-19 virus Carpal tunnel syndrome of left wrist Morbid obesity with BMI of 40.0-44.9, adult Primary insomnia Paresthesia of both feet Restless leg syndrome Primary osteoarthritis of both knees Vitamin D deficiency Acquired hypothyroidism Pure hypercholesterolemia Benign essential hypertension Closed displaced intertrochanteric fracture of left femur with routine healing COPD (chronic obstructive pulmonary disease) Type 2 diabetes mellitus without complication, without long-term current use of insulin Surgical History Status post left hip replacement Status post total knee replacement, bilateral History of colonoscopy History of surgery History of total left knee replacement History of total knee arthroplasty History of carpal tunnel release History of cholecystectomy History of elbow surgery History of cervical discectomy History of lumbar discectomy Family History Father No problems noted. Mother No problems noted. Social History Housing: House Alcohol intake: former Patient Tobacco Use Status: Former Tobacco user Quit Date: 13 years ago Tobacco use type: Cigarette e-Cigarette/Vaping Use: Never Used Second Hand Smoke Exposure: Yes service: Yes Current occupational status: retired Cognitive needs: Yes Hearing needs: Yes Vision needs: Yes Questionnaire Medicare Wellness Checkup What is your age?: 80 or older (81) What gender do you identify with?: female During the past 4 weeks, how much have you been bothered by emotional problems such as feeling anxious, depressed, irritable, sad or downhearted, and blue?: moderately During the past 4 weeks, has your physical & emotional health limited your social activities with family, friends, neighbors, or groups?: moderately During the past 4 weeks, how much bodily pain have you generally had?: severe pain During the past 4 weeks, was someone available to help you if you needed & wanted help?: yes, some During the past 4 weeks, what was the hardest physical activity you could do for at least 2 minutes?: moderate Can you get to places out of walking distance without help? (For eg., can you travel alone on buses, taxis or drive your car?): No Can you go shopping for groceries or clothes without someone's help?: Yes Can you prepare your own meals?: Yes Can you do your housework without help?: Yes Because of any health problems, do you need the help of another person with your personal care needs such as eating, bathing, dressing or getting around the house?: No Can you handle your own money without help?: Yes During the past 4 weeks, how would you rate your health in general?: good During the past 4 weeks how have things been going for you?: good & bad parts about equal Are you having difficulties driving your car?: not applicable, I don't use a car Do you always fasten your seat belt when you are in a car?: yes, usually During past 4 weeks, have you been bothered by the following: never: Sexual problems?, seldom: Teeth or denture problems? and sometimes: Falling or dizzy when standing up, Trouble eating well?, Problems using the telephone? and Tiredness or fatigue? Have you fallen 2 or more times in the past year?: Yes Are you afraid of falling?: No Are you a smoker?: no During the past 4 weeks, how many drinks of wine, beer, or other alcoholic beverages did you have?: no alcohol at all Do you exercise for about 20 minutes 3 or more times a week?: yes, some of the time Have you been given information to help with the following?: yes: Hazards in your house that might hurt you? and yes: Keeping track of your medications? How often do you have trouble taking medicines the way you have been told to take them?: I always take medicine as prescribed How confident are you that you can control & manage most of your health problems?: somewhat confident What is your race?: White Mini Mental State Exam (MMSE) Orientation What is the (year) (season) (date) (day) (month)?: year, season, date, day and month Score Score: 5 Activity of Daily Living Bathing - sponge bath, tub bath or shower: receives no assistance (gets in/out by self, if usual bathing means Dressing - getting clothes from closets & drawers, including inner/outer garments & fasteners.: gets clothes & gets completely dressed without help Toileting - going to the 'toilet room' for urine/bowel elimination & cleaning self/arranging clothes: goes to toilet room, cleans self, arranges clothes without help Transfer: moves in & out of bed and chair without help (may use support object) Continence: controls urination/bowel movements completely by self Feeding: feeds self without help Total Score: 0 Information obtained from: patient Using telephone: independent Traveling: dependent Shopping: independent Preparing meals: independent Housework: independent Taking medicine: independent Managing money: independent PHQ-9 Over the last 2 weeks, how often have you been bothered by any of the following problems? 1. Little interest or pleasure in doing things: several days (loss of family member ) 2. Feeling down, depressed, or hopeless: not at all 3. Trouble falling or staying asleep, or sleeping too much: not at all 4. Feeling tired or having little energy: not at all 5. Poor appetite or overeating: not at all 6. Feeling bad about yourself - or that you are a failure or have let yourself or your family down: several days 7. Trouble concentrating on things, such as reading the newspaper or watching television: not at all 8. Moving or speaking so slowly that other people could have noticed. Or the opposite - being so fidgety or restless that you have been moving around a lot more than usual: several days 9. Thoughts that you would be better off or of hurting yourself in some way: not at all Total score: 3 Depression Screening Interpretation: Positive Depression Screening Follow-up: Existing condition and In treatment Depression Screening Done: Yes 47233 - PHQ-9 Billing: Yes Source: Developed by Drs. Be Jang, Kristel Bustamante, Govind Rene and colleagues, with an educational wendie from [employer]. Physical Exam Vital Signs: Last Vital Signs Pulse 68 04/05/23 10:52 BP 132/70 04/05/23 10:52 Pulse Ox 99 04/05/23 10:52 Oxygen Delivery Method Room Air 04/05/23 10:52 BMI result Body Mass Index 35.7 Const General: cooperative and no acute distress Orientation/consciousness: patient oriented x3 HEENT Other: Whisper test: fail Neuro Other: Balance: Normal - patient ambulates with a cane Get up and walk: unable to Romberg: negative Tandem gait: unable to General: patient oriented x3 Office Procedures Flu Questionnaire Does the patient have a severe egg allergy?: No Does the patient have severe life threatening allergies?: No Does the patient have a fever or illness today?: No Has the patient ever had Guillain-Bergholz Syndrome?: No Has the patient ever had any past reaction to a flu shot?: No Immunizations flu vacc [id number] 6mos up(PF) 60 mcg(15 mcgx4)/0.5 mL IM syringe Performing Provider: LEATHA Faria [facility] Administered by: AURELIANO Rivers on 04/05/23 11:14 Dose Route Admin Location Dispensed Lot Number Expiration Date [employer] 0.5 mL IM Left Deltoid 0.5 mL [id number] 12/03/23 05188-776-06 [employer] VIS Given Date VIS Provided VIS Publication Date 04/05/23 Single Vaccine 21 Eligibility Eligibility Date Funding Source Not [facility] Eligible 04/05/23 Private Assessment & Plan Assessment & Plan (1) Adult general medical exam: Code(s): Z00.00 - Encounter for general adult medical examination without abnormal findings (2) Obesity (BMI 30-39.9): Code(s): E66.9 - Obesity, unspecified Plan: Encouraged healthy food choices and exercise as tolerated. (3) Type 2 diabetes mellitus without complication, without long-term current use of insulin: Code(s): E11.9 - Type 2 diabetes mellitus without complications Plan: A1c 7.7 01/2023. Continue current treatment. Reinforced low carbohydrate diet. (4) COPD (chronic obstructive pulmonary disease): Comment: PFT done back on 10/31/2017 showed findings of mild to moderate degree of restrictive pulmonary disorder and moderate degree of obstructive airway disorder with partial reversibility after bronchodilator therapy Code(s): J44.9 - Chronic obstructive pulmonary disease, unspecified Qualifiers: COPD type: unspecified COPD Qualified Code(s): J44.9 - Chronic obstructive pulmonary disease, unspecified Plan: Continue current treatment. (5) Benign essential hypertension: Code(s): I10 - Essential (primary) hypertension Plan: Reinforced low sodium diet and exercise as tolerated. (6) Pure hypercholesterolemia: Code(s): E78.00 - Pure hypercholesterolemia, unspecified Plan: Continue current treatment. Reinforced low cholesterol diet. (7) Acquired hypothyroidism: Code(s): E03.9 - Hypothyroidism, unspecified Plan: Continue current treatment. (8) Restless leg syndrome: Code(s): G25.81 - Restless legs syndrome Plan: On ropinirole at bedtime. (9) Primary insomnia: Code(s): F51.01 - Primary insomnia Plan: Continue current treatment. (10) Low back pain: Code(s): M54.50 - Low back pain, unspecified Plan: Patient is on tramadol t.i.d. p.r.n. and fentanyl patch with improvement in pain- patient reports that she takes these medications as prescribed Orders: Orders Influenza [id number] Immunization Today Z23 - Encounter for immunization Medications: Refilled tramadol Covering for Dr. Escamilla 100 mg (2 x 50 mg) PO TID 30 days PRN 180 tabs 0RF pain Quality Reporting (2019) Depression/Bipolar (159/160/161/177) PHQ-9: Total score: 3 Coding Level of Care Code Medicare Subsequent (G0439) Diagnoses Adult general medical exam Z00.00 Obesity (BMI 30-39.9) E66.9 Type 2 diabetes mellitus without complication, without long-term current use of insulin E11.9 Chronic obstructive pulmonary disease, unspecified COPD type J44.9 COPD type: unspecified COPD Benign essential hypertension I10 Pure hypercholesterolemia E78.00 Acquired hypothyroidism E03.9 Restless leg syndrome G25.81 Primary insomnia F51.01 Low back pain M54.50 CPT Codes Advance Care Planning - Time spent: 1-15 minutes, not on file ([id number]) Advance Care Planning Advance Care Planning discussion: Exists, not on file Date of discussion: 04/05/23 Who was present: pt and ccnp Forms completed: None Time spent: 1-15 minutes, not on file Actual minutes spent: 3 Did not discuss due to Cultural/Spiritual beliefs: No
== END 2023-04-05 11:40 | disposition home or self-care (01) ==
PROVIDERS: PCP Internal Medicine; Visit Provider Nurse Practitioner Family
DX: Z23 Encounter for immunization (principal); Z00.00 Encounter for general adult medical examination without abnormal findings; E11.9 Type 2 diabetes mellitus without complications; J44.9 Chronic obstructive pulmonary disease, unspecified; I10 Essential (primary) hypertension; E78.00 Pure hypercholesterolemia, unspecified; E03.9 Hypothyroidism, unspecified; G25.81 Restless legs syndrome; F51.01 Primary insomnia; M54.50 Low back pain, unspecified
CPT/HCPCS: 1124F; 90471; 90686; G0439

== ENCOUNTER 2023-07-14 10:11 | Outpatient (AMB) | payer MEDICARE, SELFPAY ==
--- NOTE | 2023-07-14 10:28 | MHC.PC.OV ---
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 Accompanied by: Self / Same As Patient Allergies No Known Allergies Allergy (Unknown, Verified 07/14/23 11:31) Medication List - Last Reconciled 07/14/23 by Jensen Escamilla MD albuterol sulfate USE 1 VIAL IN NEBULIZER EVERY 6 HOURS - As needed for shortness of breath or wheezing albuterol sulfate 90 mcg/actuation 2 puffs inhalation Q4-6H PRN apixaban (Eliquis) 5 mg PO BID cholecalciferol (vitamin D3) 2,000 units PO DAILY fentanyl 25 mcg/hr 1 patch transdermal Q72H 15 days furosemide 20 mg PO DAILY gabapentin 300 mg PO TID glimepiride 2 mg PO QAM 90 days levothyroxine 50 mcg PO QAM linagliptin (Tradjenta) 5 mg PO DAILY lorazepam 0.5 mg PO TID PRN 30 days [NEBULIZER As directed] ropinirole 4 mg PO BEDTIME rosuvastatin 10 mg PO DAILY 90 days tramadol 100 mg (2 x 50 mg) PO TID PRN 30 days trazodone Take 1 to 2 tablets orally once a day at bedtime as needed 90 days Trelegy Ellipta 200-62.5-25 mcg (yjihhorxuam-mlalbwlgo-wpunxigi) 1 inh inhalation DAILY NS Tobacco use date assessed: 07/14/23 Fall risk assessment: No Falls in past year Last assessed Fall Risk: 07/14/23 Dental Screening Dental Screen Date: 07/14/23 Did you have a dental visit in the last 12 months?: No Did you have a dental problem in the last 6 months where you did not have access to dental care?: No Was dental information given to patient?: No HPI DM HPI Details Patient comes in today for her follow up visit - was last seen by me in October 2022 Patient states that she currently feels okay She denies any headaches or dizziness Denies any chest pains, no increased SOB - notes that her breathing has been better controlled on her current Trelegy Ellipta inhaler No nausea/vomiting, no abdominal pain No change in bowel habits noted Needs a couple of her Rx refilled, including her Fentanyl patch States that her chronic pains have been adequately controlled on her current Rx Has no follow up labs done recently [facility] Medical History 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 Atypical nevus of back Cough Post-menopausal Screening for breast cancer Painful respiration Obesity (BMI 30-39.9) Benign paroxysmal vertigo Exposure to COVID-19 virus Carpal tunnel syndrome of left wrist Morbid obesity with BMI of 40.0-44.9, adult Primary insomnia Paresthesia of both feet Restless leg syndrome Primary osteoarthritis of both knees Vitamin D deficiency Acquired hypothyroidism Pure hypercholesterolemia Benign essential hypertension Closed displaced intertrochanteric fracture of left femur with routine healing COPD (chronic obstructive pulmonary disease) Type 2 diabetes mellitus without complication, without long-term current use of insulin Surgical History Status post left hip replacement Status post total knee replacement, bilateral History of colonoscopy History of surgery History of total left knee replacement History of total knee arthroplasty History of carpal tunnel release History of cholecystectomy History of elbow surgery History of cervical discectomy History of lumbar discectomy Family History Father No problems noted. Mother No problems noted. Social History Housing: House Alcohol intake: former Patient Tobacco Use Status: Former Tobacco user Quit Date: 13 years ago Tobacco use type: Cigarette e-Cigarette/Vaping Use: Never Used Second Hand Smoke Exposure: Yes service: Yes Current occupational status: retired Cognitive needs: Yes Hearing needs: Yes Vision needs: Yes Questionnaire PHQ-9 Over the last 2 weeks, how often have you been bothered by any of the following problems? 1. Little interest or pleasure in doing things: several days (loss of family member ) 2. Feeling down, depressed, or hopeless: not at all 3. Trouble falling or staying asleep, or sleeping too much: not at all 4. Feeling tired or having little energy: not at all 5. Poor appetite or overeating: not at all 6. Feeling bad about yourself - or that you are a failure or have let yourself or your family down: several days 7. Trouble concentrating on things, such as reading the newspaper or watching television: not at all 8. Moving or speaking so slowly that other people could have noticed. Or the opposite - being so fidgety or restless that you have been moving around a lot more than usual: several days 9. Thoughts that you would be better off or of hurting yourself in some way: not at all Total score: 3 Depression Screening Interpretation: Positive Depression Screening Follow-up: Existing condition and In treatment Depression Screening Done: Yes 15657 - PHQ-9 Billing: Yes Source: Developed by Drs. Be Jang, Kristel Bustamante, Govind Rene and colleagues, with an educational wendie from [employer]. Thrive Questionnaire Date Thrive assessed: 07/14/23 I am a: Patient What is your living situation today?: I have a steady place to live Within the past 12 months, did the food you bought not last and you didn't have the money to get more?: Never true Within the past 12 months, did you worry whether your food would run out before you got money to buy more?: Never true Do you have trouble paying for medicines?: No Do you have trouble getting transportation to medical appointments?: No Do you have trouble paying your heating and electricity bill?: No Do you have trouble taking care of your child, family member or friend?: No Do you have trouble with day-to-day activities such as bathing, preparing meals, shopping, managing finances, etc.?: No Are you currently unemployed and looking for a job?: No Are you interested in more education?: No Please select the resources that you would like help with: None Currently or been in a relationship where the following occur: no concerns reported THRIVE Score: 0 AUDIT C Alcohol Use Questionnaire (AUDIT-C) 1. How often do you have a drink containing alcohol?: Never 2. How many drinks containing alcohol do you have on a typical day when you are drinking?: 1 or 2 (0) 3. How often do you have six or more drinks on one occasion?: Never Total Score: 0 Score Reviewed/Action Taken: Yes JUNE-7 AMB Questionnaire JUNE-7 Date JUNE - 7 assessed: 07/14/23 Feeling nervous, anxious, or on edge: 0 = Not at all Not being able to stop or control worryin = Not at all Worrying too much about different things: 0 = Not at all Trouble relaxin = Not at all Being so restless that it is hard to sit still: 0 = Not at all Becoming easily annoyed or irritable: 0 = Not at all Feeling afraid as if something awful might happen: 0 = Not at all Total JUNE-7 score (0-4 normal; 5-9 mild; 10-14 moderate; 15-21 severe): 0 Source: Developed by Drs. Be Jang, Kristel Bustamante, Govind Rene and colleagues, with an educational wendie from [employer]. Review of Systems Const Reports fatigue, Denies fever(s) and Denies headache(s) ENT Denies dysphagia, Denies dizziness, Denies otalgia, Denies headache(s), Denies odynophagia and Denies sore throat Card Denies chest pain, Denies palpitations and Reports dyspnea on exertion (mild) Resp Denies chest congestion, Denies cough, Reports dyspnea on exertion (mild) and Denies wheezing GI Denies abdominal pain, Denies constipation, Denies dysphagia, Denies heartburn, Denies diarrhea, Denies nausea, Denies odynophagia and Denies vomiting Denies difficulty voiding, Denies nocturia, Denies dysuria and Denies urinary urgency Musc Reports back pain (recurrent), Reports arthralgias (right knee and right hip; of the left hand recently) and Denies joint swelling Skin/Breast Denies rash Neuro Denies dizziness and Denies headache(s) Endo Reports fatigue and Denies palpitations Aller/Immun Denies wheezing Physical exam (Primary Care) Vital Signs: Last Vital Signs Pulse 67 07/14/23 10:29 BP 130/74 07/14/23 10:29 Pulse Ox 95 07/14/23 10:29 Oxygen Delivery Method Room Air 07/14/23 10:29 BMI result Body Mass Index 35.9 Tobacco/Smoking Status: Tobacco use Status Tobacco use date assessed 07/14/23 07/14/23 10:31 Patient Tobacco Use Status Former Tobacco user 07/14/23 10:31 Tobacco use type Cigarette 07/14/23 10:31 e-Cigarette/Vaping Use Never Used 07/14/23 10:31 PHQ-9: PHQ-9 Score PHQ-9: Total score 3 07/14/23 11:38 Depression Screening Interpretation: Positive Depression Screening Follow-up: Existing condition and In treatment Thrive Assessment: Date of Thrive Assessment Date Thrive assessed 07/14/23 07/14/23 10:31 Currently or been in a relationship where the following occur: no concerns reported Const General: no acute distress and alert HENMT Ears: TM's normal bilaterally and EAC's normal Throat: Yes posterior oropharynx normal and Yes tonsils normal (no TP congestion) Neck Neck: Yes no lymphadenopathy and Yes supple Thyroid: Thyroid normal Resp Auscultation: clear to auscultation bilaterally, no rales and no wheezes Cardio Rate: regular rate Rhythm: regular rhythm Heart sounds: no murmurs GI Palpation (GI): Soft to palpation and nontender Auscultation: normal bowel sounds General: Yes no CVA tenderness Back/Spine/Pelvis Back: no CVA tenderness Thoracic/Lumbar Spine: lumbar spinal tenderness Skin Rashes: no rashes Extrem General: Yes no clubbing, cyanosis or edema Left upper extremity: hand Details: tenderness Location: of the thumb, of the 2nd digit, of the 3rd digit, of the 4th digit and of the 5th digit Right lower extremity: knee Details: tenderness; no swelling Left lower extremity: knee Details: tenderness; no swelling Results AMB Hemoglobin A1c AMB Hemoglobin A1c 7.6 % Last Edit by Prosper Veras on 07/14/23 11:47 Assessment and Plan Assessment & Plan (1) COPD (chronic obstructive pulmonary disease): Comment: PFT done back on 10/31/2017 showed findings of mild to moderate degree of restrictive pulmonary disorder and moderate degree of obstructive airway disorder with partial reversibility after bronchodilator therapy Code(s): J44.9 - Chronic obstructive pulmonary disease, unspecified Qualifiers: COPD type: unspecified COPD Qualified Code(s): J44.9 - Chronic obstructive pulmonary disease, unspecified Plan: Stable lately Continue Trelegy Ellipta 200-62.5-25 mcg 1 inhalation QD and Albuterol HFA 2 inhalations Q 6 hours PRN (2) Type 2 diabetes mellitus without complication, without long-term current use of insulin: Code(s): E11.9 - Type 2 diabetes mellitus without complications Plan: In-office HgbA1c done today is at 7.6% (HgbA1c was at 7.7% when last checked in January 2023) - goal is at least <7.5% based on her age and comorbidities Reinforced diabetic diet Continue Tradjenta 5 mg QD and Glimepiride 2 mg QD for now (she was not able to tolerate Metformin IR or ER in the past due to frequent diarrhea and loose stools) (3) Benign essential hypertension: Code(s): I10 - Essential (primary) hypertension Plan: Reinforced low sodium diet - goal is systolic BP of at least 130 to 140 mm or less Continue Furosemide 20 mg Q AM (4) Pure hypercholesterolemia: Code(s): E78.00 - Pure hypercholesterolemia, unspecified Plan: Has no follow up labs done recently Reinforced low cholesterol diet Continue Rosuvastatin 10 mg QD Will recheck her labs and fasting lipids in 4 months for follow up (5) Acquired hypothyroidism: Code(s): E03.9 - Hypothyroidism, unspecified Plan: Continue Levothyroxine 50 mcg QD Will recheck her TFTs in 4 months (6) Primary osteoarthritis of both knees: Comment: S/P right knee arthroplasty on 04/30/2019 S/P left knee arthroplasty on 11/20/2018 Code(s): M17.0 - Bilateral primary osteoarthritis of knee Plan: Continue Gabapentin 300 mg TID, Fentanyl patch 25 mcg Q 72 hours (Rx refilled) and Tramadol 50 mg 2 tablets 2 to 3 times a day as needed Follow up with orthopedics as scheduled (7) 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: Code(s): Z86.718 - Personal history of other venous thrombosis and embolism Plan: DVT occurred back in 2018 with no recurrence since Continue Eliquis 5 mg BID (8) Vitamin D deficiency: Code(s): E55.9 - Vitamin D deficiency, unspecified Plan: Continue Vitamin D3 2000 units QD (9) Primary insomnia: Code(s): F51.01 - Primary insomnia Plan: Sleep hygiene reinforced Continue Trazodone 50 mg 1 to 2 tablets daily at bedtime as need (10) Obesity (BMI 30-39.9): Code(s): E66.9 - Obesity, unspecified Plan: Reinforced diet/lose weight; exercise is unrealistic at this point due to her chronic knee issues and poor mobility as well as poor exercise tolerance Plan Follow up in 4 months Orders: Orders AMB Hemoglobin A1c Today Z13.9 - Encounter for screening, unspecified Complete Blood Count Auto Diff 4 Months D64.9 - Anemia, unspecified Comprehensive [place]. Panel Fast 4 Months E78.00 - Pure hypercholesterolemia, unspecified Lipid Panel 4 Months E78.00 - Pure hypercholesterolemia, unspecified Thyroid Stimulating Hormone 4 Months E03.9 - Hypothyroidism, unspecified Free T4 (Free Thyroxine) 4 Months E03.9 - Hypothyroidism, unspecified Vitamin D 25-OH Total 4 Months E55.9 - Vitamin D deficiency, unspecified UA CC w/rflx Micro + Cult 4 Months R30.0 - Dysuria Hemoglobin A1c 4 Months E11.9 - Type 2 diabetes mellitus without complications Medications: Changed From levothyroxine 50 mcg PO QAM 30 tabs 3RF To levothyroxine 50 mcg PO QAM 90 days 90 tabs 1RF Refilled fentanyl 25 mcg/hr Partial Fill upon patient request 1 patch transdermal Q72H 15 days 5 ea 0RF G89.4 - Chronic pain syndrome, M25.552 - Pain in left hip, M54.50 - Low back pain, unspecified Coding Level of Care Code Est Pt Level 4 (82957) Diagnoses Chronic obstructive pulmonary disease, unspecified COPD type J44.9 COPD type: unspecified COPD Type 2 diabetes mellitus without complication, without long-term current use of insulin E11.9 Benign essential hypertension I10 Pure hypercholesterolemia E78.00 Acquired hypothyroidism E03.9 Primary osteoarthritis of both knees M17.0 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 Z86.718 Vitamin D deficiency E55.9 Primary insomnia F51.01 Obesity (BMI 30-39.9) E66.9
[2023-07-14 10:29] VITALS: BP 130/74; PULSE 67; O2SAT 95; BMI 35.9
== END 2023-07-14 11:52 | disposition home or self-care (01) ==
PROVIDERS: PCP Internal Medicine; Visit Provider Internal Medicine
DX: J44.9 Chronic obstructive pulmonary disease, unspecified (principal); E11.9 Type 2 diabetes mellitus without complications; E66.9 Obesity, unspecified; Z68.35 Body mass index [BMI] 35.0-35.9, adult; Z86.718 Personal history of other venous thrombosis and embolism; I10 Essential (primary) hypertension; E78.00 Pure hypercholesterolemia, unspecified; E03.9 Hypothyroidism, unspecified; M17.0 Bilateral primary osteoarthritis of knee; E55.9 Vitamin D deficiency, unspecified; F51.01 Primary insomnia
CPT/HCPCS: 83036; 99214

== ENCOUNTER 2023-09-15 11:55 | Outpatient (REF) | payer MEDICARE, SELFPAY ==
[2023-09-15 12:14] LABS: MANUAL DIFF FLAG NO
[2023-09-15 12:50] LABS: Basophils Percent Auto 0.2 % (0-2); Eosinophils Percent Auto 0.1 % (0-4); Hematocrit 41.7 % (37.0-47.0); Hemoglobin 13.4 g/dl (12.0-16.0); Imm Gran Abs Auto 0.05 X10*3/uL (0.00-0.03); Imm Gran Pct Auto 0.4 % (0.0-0.4); Lymphocytes Absolute Auto 1.7 X10*3/uL (1.2-4.9); Lymphocytes Percent Auto 15.4 % (20-40); Mean Corpuscular HGB Conc 32.1 g/dl (31.0-35.0); Mean Corpuscular Hemoglobin 29.4 pg (27.0-33.0); Mean Corpuscular Volume 91.4 fL (80.0-98.0); Mean Platelet Volume 9.7 fL (9.4-12.3); Monocytes Absolute Auto 0.8 X10*3/uL (0.1-1.2); Monocytes Percent Auto 6.6 % (2-11); Neutrophils Absolute Auto 8.7 x10*3/uL (2.0-8.3); Neutrophils Percent Auto 77.3 % (45-73); Platelet Count 341 X10*3/uL (160-400); Red Blood Count 4.56 X10*6/uL (4.20-5.50); Red Cell Distribution Width 13.7 % (11.0-16.0); White Blood Count 11.3 X10*3/uL (4.8-10.8)
[2023-09-15 13:37] LABS: Estimated Average Glucose 163 mg/dL; Hemoglobin A1c % 7.3 % (<6.0)
[2023-09-15 13:48] LABS: Alanine Aminotransferase 8 U/L (0-31); Albumin Level 3.7 g/dL (3.5-5.0); Alkaline Phosphatase 84 U/L (39-117); Anion Gap 14 (12-20); Aspartate Amino Transferase 16 U/L (5-31); Bilirubin Total 0.5 mg/dL (0.0-1.0); Blood Urea Nitrogen 19 mg/dL (9-16); Calcium 9.7 mg/dL (8.4-10.2); Carbon Dioxide 25 mmol/L (22-29); Chloride 108 mmol/L (96-108); Estimated Glomerular Filt Rate > 60; Free T4 (Free Thyroxine) 1.12 ng/dL (0.71-1.85); Glucose Random 147 mg/dL (60-115); Potassium 3.2 mmol/L (3.3-5.1); Sodium 144 mmol/L (135-145); Thyroid Stimulating Hormone 6.44 uIU/mL (0.32-4.0); Total Protein 8.2 g/dL (6.5-8.0)
[2023-09-15 14:01] LABS: Appearance Urine Cloudy; Color Urine Dark Yellow; Glucose Urine UA Negative (Negative); Leukocyte Esterase Urine Small (1+) (Negative); Nitrite Urine Negative (Negative); Specific Gravity - Urine >= 1.030 (1.005-1.025); UMIC TRIGGER UACC YES; Urine Blood Negative (Negative); Urine Ketones Trace mg/dL (Negative); Urine Protein 30 (1+) mg/dL (Neg-Trace)
[2023-09-15 14:20] LABS: Bacteria Urine Trace (None Seen); Hyaline Casts Urine 0-2 /LPF (0-2); RBC Urine 0-2 /HPF (0-2); UACC Culture Trigger YES
[2023-09-15 14:41] LABS: Creatinine Urine 206.46 mg/dL; Microalbum/Creatinine Ratio Ur 39.7 ug/mg cr (<30)
== END 2023-09-15 11:56 | disposition home or self-care (01) ==
LOC: HO.LAB 11:55
PROVIDERS: PCP Internal Medicine; Visit Provider Internal Medicine
DX: E03.9 Hypothyroidism, unspecified (principal); D64.9 Anemia, unspecified; R53.83 Other fatigue; R53.1 Weakness; E11.9 Type 2 diabetes mellitus without complications; R30.0 Dysuria
CPT/HCPCS: 36415; 80053; 81001; 81003; 82043; 82570; 83036; 84439; 84443; 85025; 87086

== ENCOUNTER 2023-09-20 13:23 | Emergency (ER) | payer MEDICARE, SELFPAY ==
--- NOTE | ~2023-09-20 | XR_ITS ---
EXAMINATION: XR ANKLE, RIGHT CLINICAL INFORMATION: Pain swelling no trauma. COMPARISON: X-rays of the right ankle January 2017 TECHNIQUE: AP, lateral, and mortise views of the right ankle. FINDINGS: There is soft tissue prominence circumferentially about the ankle likely reflecting edema versus normal variation soft tissue thickness. Scattered calcification the soft tissues perhaps likely related to chronic venostasis. Arterial calcification noted. Small plantar calcaneal spur. Joints normal. XR/XR ankle RT min 3V IMPRESSION: 1. Soft tissue prominence about the ankle likely reflecting edema versus normal variation. 2. Calcific atherosclerotic disease.
[2023-09-20 14:04] VITALS: BP 120/68; PULSE 85; O2SAT 97
[2023-09-20 14:08] VITALS: BP 113/54; PULSE 73; RESP 18; TEMP 37.1; O2SAT 92; BMI 35.2
--- NOTE | 2023-09-20 14:20 | ED_ITS ---
HPI - Extremity Injury (Lower) General Chief Complaint: Extremity Injury, Lower Stated Complaint: ANKLE PAIN Time Seen by Provider: 09/20/23 13:47 Source: patient and EMS Limitations: no limitations History of Present Illness HPI Narrative: Patient comes to the emergency room from home. Patient states that since yesterday patient started having difficulty ambulating due to right ankle pain. Patient states it is swollen, pain radiates towards the knee. Patient denies any trauma. Patient takes Eliquis for history of lower extremity DVTs Related Data Previous Rx's ?Medication ?Instructions ?Recorded NEBULIZER #1 ea 10/16/20 albuterol sulfate 2.5 mg/3 mL See Rx Instructions .Route 07/18/22 (0.083 %) solution for nebulization .COMPLEX #120 ea cholecalciferol (vitamin D3) 50 2,000 unit PO DAILY #90 caps 11/01/22 mcg (2,000 unit) capsule gabapentin 300 mg capsule 300 mg PO TID #270 caps 11/24/22 furosemide 20 mg tablet 20 mg PO DAILY #90 tabs 02/10/23 linagliptin 5 mg tablet (Tradjenta) 5 mg PO DAILY #90 tabs 02/10/23 rosuvastatin 10 mg tablet 10 mg PO DAILY 90 days #90 tabs 02/10/23 Trelegy Ellipta 200 mcg-62.5 1 inh inhalation DAILY #60 ea 03/06/23 mcg-25 mcg powder for inhalation (ehrgvdevcut-xlrpoyaep-xbitelyb) lorazepam 0.5 mg tablet 0.5 mg PO TID PRN anxiety 30 days 04/26/23 #90 tabs ropinirole 4 mg tablet 4 mg PO BEDTIME #90 tabs 05/04/23 trazodone 50 mg tablet See Rx Instructions .Route 05/26/23 .COMPLEX 90 days #180 tabs apixaban 5 mg tablet (Eliquis) 5 mg PO BID #120 tabs 06/08/23 glimepiride 2 mg tablet 2 mg PO QAM 90 days #90 tabs 06/08/23 levothyroxine 50 mcg tablet 50 mcg PO QAM 90 days #90 tabs 07/14/23 albuterol sulfate 90 mcg/actuation 2 puff inhalation Q4-6H PRN for 07/18/23 aerosol inhaler wheezing #25.5 ea tramadol 50 mg tablet 100 mg (2 x 50 mg) PO TID PRN pain 08/22/23 30 days #180 tabs cetirizine 10 mg tablet 10 mg PO DAILY PRN allergy 09/11/23 symptoms 90 days #90 tabs fentanyl 25 mcg/hr transdermal 1 patch transdermal Q72H 15 days 09/11/23 patch #5 ea BEDSIDE COMMODE #1 ea 09/20/23 oxycodone 5 mg tablet 5 mg PO BID PRN pain #6 tabs 09/20/23 Allergies Allergy/AdvReac Type Severity Reaction Status Date / Time No Known Allergies Allergy Unknown Verified 09/20/23 14:10 Review of Systems Review of Systems: Constitutional : No Weight loss, No Fever, No Chills, No Night Sweats, No Fatigue, No Malaise ENT/Mouth : No Hearing loss, No Ear Pain, No Nasal Congestion, No Sinus Pain, No Hoarseness, No sore throat, No Rhinorrhea, No Swallowing Difficulty Eyes: No Eye Pain, No Swelling, No Redness, No Foreign Body, No Discharge, No Vision Changes Cardiovascular : No Chest Pain, No SOB, No Dyspnea on Exertion, No Orthopnea, no palpitations Respiratory : No Cough, No Sputum, No Wheezing, No Smoke Exposure, No Dyspnea Gastrointestinal : No Nausea, No Vomiting, No Diarrhea, No Constipation, No abdominal Pain, No Hematochezia, No Melena Genitourinary : no irregular bleeding, No Dysuria, No Urinary Frequency, No Hematuria, No Urinary Incontinence, No Urgency, No Flank Pain, No Urinary Flow Changes, No Hesitancy Musculoskeletal : Complaining of right ankle pain and swelling of the foot Skin : No Skin Lesions, No rash Neuro : No Weakness, No Numbness, No Paresthesias, No Loss of Consciousness, No Dizziness, No Headache Psych : No Anxiety/Panic, No Depression, No SI/HI/AH/VH, No Social Issues, Heme/Lymph: No Bruising, No Bleeding,No Lymphadenopathy Endocrine : No Polyuria, No Polydipsia, No Temperature Intolerance [facility] Past Medical History Medical History 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 Atypical nevus of back Cough Post-menopausal Screening for breast cancer Painful respiration Obesity (BMI 30-39.9) Benign paroxysmal vertigo Exposure to COVID-19 virus Carpal tunnel syndrome of left wrist Morbid obesity with BMI of 40.0-44.9, adult Primary insomnia Paresthesia of both feet Restless leg syndrome Primary osteoarthritis of both knees Vitamin D deficiency Acquired hypothyroidism Pure hypercholesterolemia Benign essential hypertension Closed displaced intertrochanteric fracture of left femur with routine healing COPD (chronic obstructive pulmonary disease) Type 2 diabetes mellitus without complication, without long-term current use of insulin Surgical History Status post left hip replacement Status post total knee replacement, bilateral History of colonoscopy History of surgery History of total left knee replacement History of total knee arthroplasty History of carpal tunnel release History of cholecystectomy History of elbow surgery History of cervical discectomy History of lumbar discectomy Family History Family History Father No problems noted. Mother No problems noted. Social History Social History Housing: House Alcohol intake: former Patient Tobacco Use Status: Former Tobacco user Quit Date: 13 years ago Tobacco use type: Cigarette e-Cigarette/Vaping Use: Never Used Second Hand Smoke Exposure: Yes Advance Directives: No Advance Directives Information Provided: Yes service: Yes Current occupational status: retired Cognitive needs: Yes Hearing needs: Yes Vision needs: Yes Physical Exam Vital Signs: Vital Signs: Last Vital Signs Temp 98.8 F 09/20/23 14:08 Pulse 73 09/20/23 14:08 Resp 18 09/20/23 14:08 BP 113/54 L 09/20/23 14:08 Pulse Ox 92 09/20/23 14:08 O2 Del Method Room Air 09/20/23 14:08 BMI result Body Mass Index 35.2 Const: Other: Appearance: Alert. Oriented X3. No acute distress. Eyes: Pupils equal, round and reactive to light. ENT: Pharynx normal. Neck: Normal inspection. Neck supple. No lymph nodes noted. No crepitus CVS: Normal heart rate and rhythm. Pulses normal. Normal S1 and S2 Respiratory: No respiratory distress. Breath sounds normal. No Wheezing. No rales Abdomen: Soft and nontender. No rigidity. No distention. Skin: Skin warm and dry. Normal skin color. Normal skin turgor. Extremities: Left lower extremity within normal limits. Right lower extremity patient has pain to palpation over the lateral malleolus, foot ankle swollen, no pitting edema. No calf pain. Neuro: Oriented X 3. No motor deficit. No sensory deficit. Moving all extremities. No slurred speech. CN 2 through 12 grossly intact Psych: calm, cooperative, normal affect Course Course Course Narrative: -x-rays pending. Patient does not have history of trauma yet lower extremity on the right is swollen, we will go ahead and order an ultrasound to rule out DVT, patient has history of DVTs Medical Decision Making Medical Decision Making MDM Narrative: -my interpretation of x-ray, normal alignment, no obvious fracture -on physical exam: Patient does not have an erythematous joint, or enough fluid to be drained. -radiology report: Soft tissue prominence about the ankle likely edema versus normal variation -an ultrasound was ordered to rule out DVT. Per radioisotope technologist, patient refused. Patient states that she would like to wait and see if he gets better by itself. I discussed with the patient that it is possible that patient may have a blood clot. Patient states that she is aware of it, takes a blood thinner without skipping doses, less likely to be a DVT. However, unable to rule out without an ultrasound. -ambulation trial : Patient had a difficult time walking but was able to do so with assistance. Patient and patient's daughter aware that DVT could not be rule out. Also, discussed with the patient that she has no walking at baseline. Patient refused any other assistance, patient states that she will be fine at home with the assistance of her daughter. If anything changes, they will return to the emergency room. -patient states that she took tramadol at home without significant relief. Patient will take oxycodone. Discussed with the patient that it is very important that she takes the medication when she is laying down in the couch or in bed, since this medication can make her sleepy and dizzy and may cause her to fall. Differential Diagnosis Differential Diagnoses: The differential diagnosis associated with the presentation includes (Lower extremity edema, venous insufficiency, gout, ankle sprain, fracture, DVT) Admission/Observation Consideration of admission/observation: Escalation of care including admission/observation considered (Considering patient's difficulty to walk, case management/observation was considered) Independent Interpretation I performed an independent interpretation of an: Plain X-Ray Interpretation: FINDINGS: There is soft tissue prominence circumferentially about the ankle likely reflecting edema versus normal variation soft tissue thickness. Scattered calcification the soft tissues perhaps likely related to chronic venostasis. Arterial calcification noted. Small plantar calcaneal spur. Joints normal. XR/XR ankle RT min 3V IMPRESSION: 1. Soft tissue prominence about the ankle likely reflecting edema versus normal variation. 2. Calcific atherosclerotic disease Discharge Plan Discharge Clinical Impression: Ankle swelling Patient Disposition: Home, Self-Care Instructions: Arthralgia (ED) Additional Instructions: Please follow-up with your primary care physician tomorrow. If you have any worsening or new symptoms, please return to the emergency room or call 911 Prescriptions: New oxycodone 5 mg tablet 5 mg PO BID PRN (Reason: pain) Qty: 6 0RF Rx Instructions: Partial Fill upon patient request. No Action (DME) NEBULIZER See Rx Instructions .Route .MEDSUPPLY Qty: 1 0RF Rx Instructions: As directed albuterol sulfate 2.5 mg /3 mL (0.083 %) solution for nebulization See Rx Instructions .ROUTE .COMPLEX Qty: 120 11RF Dose Instruction: USE 1 VIAL IN NEBULIZER EVERY 6 HOURS - As needed for shortness of breath or wheezing Rx Instructions: USE 1 VIAL IN NEBULIZER EVERY 6 HOURS - As needed for shortness of breath or wheezing cholecalciferol (vitamin D3) 50 mcg (2,000 unit) capsule 2,000 unit PO DAILY Qty: 90 3RF gabapentin 300 mg capsule 300 mg PO TID Qty: 270 3RF furosemide 20 mg tablet 20 mg PO DAILY Qty: 90 3RF Tradjenta 5 mg tablet 5 mg PO DAILY Qty: 90 1RF rosuvastatin 10 mg tablet 10 mg PO DAILY 90 Days Qty: 90 1RF Trelegy Ellipta 200-62.5-25 mcg blister with device 1 inh inhalation DAILY Qty: 60 5RF lorazepam 0.5 mg tablet 0.5 mg PO TID PRN (Reason: anxiety) 30 Days Qty: 90 1RF ropinirole 4 mg tablet 4 mg PO BEDTIME Qty: 90 1RF trazodone 50 mg tablet See Rx Instructions .ROUTE .COMPLEX 90 Days Qty: 180 1RF Rx Instructions: Take 1 to 2 tablets orally once a day at bedtime as needed Eliquis 5 mg tablet 5 mg PO BID Qty: 120 0RF glimepiride 2 mg tablet 2 mg PO QAM 90 Days Qty: 90 1RF Rx Instructions: administer with breakfast albuterol sulfate 90 mcg/actuation HFA aerosol inhaler 2 puff inhalation Q4-6H PRN (Reason: for wheezing) Qty: 25.5 1RF tramadol 50 mg tablet 100 mg PO TID PRN (Reason: pain) 30 Days Qty: 180 0RF fentanyl 25 mcg/hr patch 72 hour 1 patch transdermal Q72H 15 Days Qty: 5 0RF Rx Instructions: Partial Fill upon patient request cetirizine 10 mg tablet 10 mg PO DAILY PRN (Reason: allergy symptoms) 90 Days Qty: 90 3RF (DME) BEDSIDE COMMODE See Rx Instructions .Route .MEDSUPPLY Qty: 1 0RF Rx Instructions: As directed levothyroxine 50 mcg tablet 50 mcg PO QAM 90 Days Qty: 90 1RF Print Language: Wolof
--- NOTE | 2023-09-20 16:33 | PC.NURSE ---
pt refusing for ultrasound to be completed d/t potentilally long wait for results. ambulation trial completed with this RN. 1:1 assist needed w/ the use of a walker to ambulate a few yards. pt denies feeling sob but wob is shown during ambulation trial. multiple stops are needed in order to complete ambulation trial. dr. mitchell bedside explaining importance of staying for ultrasound to be completed. pt educated on and aware of risks for leaving without having scans completed. plan of care ongoing.
[2023-09-20 16:44] VITALS: BP 131/65; PULSE 77; RESP 16; TEMP 37.2; O2SAT 77
== END 2023-09-20 16:44 | disposition home or self-care (01) ==
PROVIDERS: Emergency Provider Emergency Medicine; PCP Internal Medicine
DX: M25.471 Effusion, right ankle (principal); M25.561 Pain in right knee; Z79.01 Long term (current) use of anticoagulants; Z86.718 Personal history of other venous thrombosis and embolism
CPT/HCPCS: 73610; 99282; 99283

== ENCOUNTER 2023-11-09 10:13 | Outpatient (REF) | payer MEDICARE, MEDICAID, SELFPAY ==
[2023-11-09 10:31] LABS: MANUAL DIFF FLAG NO
[2023-11-09 11:18] LABS: Basophils Absolute Auto 0.1 X10*3/uL (0.0-0.2); Basophils Percent Auto 0.7 % (0-2); Eosinophils Absolute Auto 0.2 X10*3/uL (0.0-0.4); Eosinophils Percent Auto 1.6 % (0-4); Hematocrit 41.9 % (37.0-47.0); Hemoglobin 13.3 g/dl (12.0-16.0); Imm Gran Abs Auto 0.05 X10*3/uL (0.00-0.03); Imm Gran Pct Auto 0.5 % (0.0-0.4); Lymphocytes Absolute Auto 2.5 X10*3/uL (1.2-4.9); Lymphocytes Percent Auto 24.1 % (20-40); Mean Corpuscular HGB Conc 31.7 g/dl (31.0-35.0); Mean Corpuscular Hemoglobin 30.5 pg (27.0-33.0); Mean Corpuscular Volume 96.1 fL (80.0-98.0); Mean Platelet Volume 9.8 fL (9.4-12.3); Monocytes Absolute Auto 0.7 X10*3/uL (0.1-1.2); Monocytes Percent Auto 6.2 % (2-11); Neutrophils Percent Auto 66.9 % (45-73); Platelet Count 275 X10*3/uL (160-400); Red Blood Count 4.36 X10*6/uL (4.20-5.50); Red Cell Distribution Width 14.4 % (11.0-16.0); White Blood Count 10.4 X10*3/uL (4.8-10.8)
[2023-11-09 11:36] LABS: Alanine Aminotransferase 8 U/L (0-31); Albumin Level 3.9 g/dL (3.5-5.0); Alkaline Phosphatase 98 U/L (39-117); Anion Gap 13 (12-20); Aspartate Amino Transferase 18 U/L (5-31); Bilirubin Total 0.5 mg/dL (0.0-1.0); Blood Urea Nitrogen 16 mg/dL (9-16); Calcium 9.5 mg/dL (8.4-10.2); Carbon Dioxide 27 mmol/L (22-29); Chloride 105 mmol/L (96-108); Cholesterol 122 mg/dL (<200); Estimated Glomerular Filt Rate > 60; Glucose Fasting 109 mg/dL (60-99); HDL Cholesterol 48 mg/dL (>40); LDL Cholesterol Calculated 59 mg/dL (<100); Potassium 4.4 mmol/L (3.3-5.1); Sodium 141 mmol/L (135-145); Total Protein 8.2 g/dL (6.5-8.0); Triglycerides 76 mg/dL (<150)
[2023-11-09 11:52] LABS: Estimated Average Glucose 148 mg/dL; Hemoglobin A1c % 6.8 % (<6.0)
[2023-11-09 11:54] LABS: Appearance Urine Cloudy; Color Urine Yellow; Glucose Urine UA Negative (Negative); Leukocyte Esterase Urine Small (1+) (Negative); Nitrite Urine Negative (Negative); UMIC TRIGGER UACC YES; Urine Blood Negative (Negative); Urine Ketones Negative (Negative); Urine Protein Negative (Neg-Trace)
[2023-11-09 11:58] LABS: Vitamin D 25-OH Total 39.5 ng/mL (>30)
[2023-11-09 12:07] LABS: Bacteria Urine Trace (None Seen); Hyaline Casts Urine 0-2 /LPF (0-2); RBC Urine 0-2 /HPF (0-2); UACC Culture Trigger YES; WBC Urine 0-5 /HPF (0-5)
== END 2023-11-09 10:14 | disposition home or self-care (01) ==
LOC: HO.LAB 10:13
PROVIDERS: PCP Internal Medicine; Visit Provider Internal Medicine
DX: D64.9 Anemia, unspecified (principal); E78.00 Pure hypercholesterolemia, unspecified; E03.9 Hypothyroidism, unspecified; E55.9 Vitamin D deficiency, unspecified; E11.9 Type 2 diabetes mellitus without complications; R82.90 Unspecified abnormal findings in urine
CPT/HCPCS: 36415; 80053; 80061; 81001; 82306; 83036; 84439; 84443; 85025; 87086

== ENCOUNTER 2023-11-15 10:08 | Outpatient (AMB) | payer MEDICARE, MEDICAID, SELFPAY ==
[2023-11-15 10:09] VITALS: BP 130/64; PULSE 70; O2SAT 97; BMI 36.3
--- NOTE | 2023-11-15 10:09 | MHC.PC.OV ---
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 Allergies No Known Allergies Allergy (Unknown, Verified 11/15/23 10:42) Medication List - Last Reconciled 11/15/23 by Jensen Escamilla MD albuterol sulfate USE 1 VIAL IN NEBULIZER EVERY 6 HOURS - As needed for shortness of breath or wheezing albuterol sulfate 90 mcg/actuation 2 puffs inhalation Q4-6H PRN apixaban (Eliquis) 5 mg PO BID [BEDSIDE COMMODE As directed] cetirizine 10 mg PO DAILY PRN 90 days cholecalciferol (vitamin D3) 2,000 units PO DAILY fentanyl 25 mcg/hr 1 patch transdermal Q72H 15 days furosemide 20 mg PO DAILY gabapentin 300 mg PO TID glimepiride 2 mg PO QAM 90 days levothyroxine 50 mcg PO QAM 90 days linagliptin (Tradjenta) 5 mg PO DAILY lorazepam 0.5 mg PO TID PRN 30 days [NEBULIZER As directed] oxycodone 5 mg PO BID PRN ropinirole 4 mg PO BEDTIME rosuvastatin 10 mg PO DAILY 90 days tramadol 100 mg (2 x 50 mg) PO TID PRN 30 days trazodone Take 1 to 2 tablets orally once a day at bedtime as needed 90 days Trelegy Ellipta 200-62.5-25 mcg ([id number]) 1 inh inhalation DAILY NS [walker As directed] Tobacco use date assessed: 11/15/23 Fall risk assessment: No Falls in past year Last assessed Fall Risk: 11/15/23 Dental Screening Dental Screen Date: 07/14/23 HPI HTN, DM, COPD, OA, Hx DVT, hypothyroidism HPI Details Patient comes in today for her follow up visit Recalls experiencing some swelling of her right ankle a couple of months ago - denies any recent injury or trauma to her ankle She went to the ER for further evaluation and had x-rays of the ankle done, which showed only (+) joint effusion She was advised to have an MRI of the ankle done further evaluation but she states that at the time, she has been in the ER for several hours and just wanted to go home so she declined the MRI States that her ankle swelling gradually subsided on its own in a few days and inexplicably, her left shoulder then started swelling up and bothering her a couple of weeks later She also continues to experience frequent pain (chronic) in both of her knees - needs her Tramadol Rx refilled today She also reports that her neck has been cracking a lot lately and feels sore and sometimes painful more frequently for the past couple of months Recalls having some surgery done on her neck back in the early but she cannot remember exactly what procedure was done States that she feels okay otherwise She denies any headaches or dizziness Denies any chest pains, no increased SOB No nausea/vomiting, no abdominal pain No change in bowel habits noted Had her follow up labs done last week - to discuss her results [facility] Medical History 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 Atypical nevus of back Cough Post-menopausal Screening for breast cancer Painful respiration Obesity (BMI 30-39.9) Benign paroxysmal vertigo Exposure to COVID-19 virus Carpal tunnel syndrome of left wrist Morbid obesity with BMI of 40.0-44.9, adult Primary insomnia Paresthesia of both feet Restless leg syndrome Primary osteoarthritis of both knees Vitamin D deficiency Acquired hypothyroidism Pure hypercholesterolemia Benign essential hypertension Closed displaced intertrochanteric fracture of left femur with routine healing COPD (chronic obstructive pulmonary disease) Type 2 diabetes mellitus without complication, without long-term current use of insulin Surgical History Status post left hip replacement Status post total knee replacement, bilateral History of colonoscopy History of surgery History of total left knee replacement History of total knee arthroplasty History of carpal tunnel release History of cholecystectomy History of elbow surgery History of cervical discectomy History of lumbar discectomy Family History Father No problems noted. Mother No problems noted. Social History Housing: House Alcohol intake: former Patient Tobacco Use Status: Former Tobacco user Tobacco use type: Cigarette e-Cigarette/Vaping Use: Never Used Second Hand Smoke Exposure: Yes service: Yes Current occupational status: retired Cognitive needs: Yes Hearing needs: Yes Vision needs: Yes Questionnaire PHQ-9 Over the last 2 weeks, how often have you been bothered by any of the following problems? 1. Little interest or pleasure in doing things: several days (loss of family member ) 2. Feeling down, depressed, or hopeless: not at all 3. Trouble falling or staying asleep, or sleeping too much: not at all 4. Feeling tired or having little energy: not at all 5. Poor appetite or overeating: not at all 6. Feeling bad about yourself - or that you are a failure or have let yourself or your family down: several days 7. Trouble concentrating on things, such as reading the newspaper or watching television: not at all 8. Moving or speaking so slowly that other people could have noticed. Or the opposite - being so fidgety or restless that you have been moving around a lot more than usual: several days 9. Thoughts that you would be better off or of hurting yourself in some way: not at all Total score: 3 Depression Screening Interpretation: Positive Depression Screening Follow-up: Existing condition and In treatment Depression Screening Done: Yes 27605 - PHQ-9 Billing: Yes Source: Developed by Drs. Be Jang, Kristel Bustamante, Govind Rene and colleagues, with an educational wendie from [employer]. Thrive Questionnaire Date Thrive assessed: 11/15/23 I am a: Patient What is your living situation today?: I have a steady place to live Within the past 12 months, did the food you bought not last and you didn't have the money to get more?: Never true Within the past 12 months, did you worry whether your food would run out before you got money to buy more?: Never true Do you have trouble paying for medicines?: No Do you have trouble getting transportation to medical appointments?: No Do you have trouble paying your heating and electricity bill?: No Do you have trouble taking care of your child, family member or friend?: No Do you have trouble with day-to-day activities such as bathing, preparing meals, shopping, managing finances, etc.?: No Are you currently unemployed and looking for a job?: No Are you interested in more education?: No Please select the resources that you would like help with: None Currently or been in a relationship where the following occur: no concerns reported THRIVE Score: 0 AUDIT C Alcohol Use Questionnaire (AUDIT-C) 1. How often do you have a drink containing alcohol?: Never 2. How many drinks containing alcohol do you have on a typical day when you are drinking?: 1 or 2 (0) 3. How often do you have six or more drinks on one occasion?: Never Total Score: 0 Score Reviewed/Action Taken: Yes JUNE-7 AMB Questionnaire JUNE-7 Date JUNE - 7 assessed: 11/15/23 Source: Developed by Drs. Be Jang, Kristel Bustamante, Govind Rene and colleagues, with an educational wendie from [employer]. Review of Systems Const Denies chills, Reports fatigue, Denies fever(s) and Denies headache(s) ENT Denies dysphagia, Denies dizziness, Denies otalgia, Denies headache(s), Reports neck pain (feels that her neck has been cracking a lot lately), Denies odynophagia and Denies sore throat Card Denies chest pain, Denies palpitations and Reports dyspnea on exertion (mild) Resp Denies chest congestion, Denies cough, Reports dyspnea on exertion (mild) and Denies wheezing GI Denies abdominal pain, Denies constipation, Denies dysphagia, Denies heartburn, Denies diarrhea, Denies nausea, Denies odynophagia and Denies vomiting Denies difficulty voiding, Denies nocturia, Denies dysuria and Denies urinary urgency Musc Reports back pain (recurrent), Reports arthralgias (right knee and right hip), Reports joint swelling (see HPI) and Reports neck pain (feels that her neck has been cracking a lot lately) Skin/Breast Denies rash Neuro Denies dizziness and Denies headache(s) Endo Reports fatigue and Denies palpitations Aller/Immun Denies wheezing Physical exam (Primary Care) Vital Signs: Last Vital Signs Pulse 70 11/15/23 10:09 BP 130/64 11/15/23 10:09 Pulse Ox 97 11/15/23 10:09 Oxygen Delivery Method Room Air 11/15/23 10:09 BMI result Body Mass Index 36.3 Tobacco/Smoking Status: Tobacco use Status Tobacco use date assessed 11/15/23 11/15/23 10:10 Patient Tobacco Use Status Former Tobacco user 11/15/23 10:10 Tobacco use type Cigarette 11/15/23 10:10 e-Cigarette/Vaping Use Never Used 11/15/23 10:10 PHQ-9: PHQ-9 Score PHQ-9: Total score 3 11/15/23 10:17 Depression Screening Interpretation: Positive Depression Screening Follow-up: Existing condition and In treatment Thrive Assessment: Date of Thrive Assessment Date Thrive assessed 07/14/23 11/15/23 10:10 Currently or been in a relationship where the following occur: no concerns reported Const General: no acute distress and alert HENMT Ears: TM's normal bilaterally and EAC's normal Throat: Yes posterior oropharynx normal and Yes tonsils normal (no TP congestion) Neck Neck: Yes no lymphadenopathy and Yes tender Thyroid: Thyroid normal Resp Auscultation: clear to auscultation bilaterally, no rales and no wheezes Cardio Rate: regular rate Rhythm: regular rhythm Heart sounds: no murmurs GI Palpation (GI): Soft to palpation and nontender Auscultation: normal bowel sounds General: Yes no CVA tenderness Back/Spine/Pelvis Back: no CVA tenderness Cervical Spine: Cervical spine tenderness Thoracic/Lumbar Spine: lumbar spinal tenderness Skin Rashes: no rashes Extrem General: Yes no clubbing, cyanosis or edema Left upper extremity: hand Details: tenderness Location: of the thumb, of the 2nd digit, of the 3rd digit, of the 4th digit and of the 5th digit Right lower extremity: knee Details: tenderness; no swelling Left lower extremity: knee Details: tenderness; no swelling Results Reviewed Results Reviewed: Laboratory Tests 11/09/23 11/09/23 10:28 10:30 WBC 10.4 Hgb 13.3 Hct 41.9 Plt Count 275 Sodium 141 Potassium 4.4 D Creatinine 0.87 Estimated GFR > 60 Fasting Glucose 109 H Hemoglobin A1c % 6.8 H Calcium 9.5 AST 18 ALT 8 Triglycerides 76 Cholesterol 122 LDL Cholesterol, Calc 59 HDL Cholesterol 48 25-OH Vitamin D Total 39.5 TSH 13.10 H Free T4 1.10 Ur Specific [place] 1.010 Urine Protein Negative Urine Glucose (UA) Negative Urine Blood Negative Assessment and Plan Assessment & Plan (1) COPD (chronic obstructive pulmonary disease): Comment: PFT done back on 10/31/2017 showed findings of mild to moderate degree of restrictive pulmonary disorder and moderate degree of obstructive airway disorder with partial reversibility after bronchodilator therapy Code(s): J44.9 - Chronic obstructive pulmonary disease, unspecified Qualifiers: COPD type: unspecified COPD Qualified Code(s): J44.9 - Chronic obstructive pulmonary disease, unspecified Plan: Stable Continue Trelegy Ellipta 200-62.5-25 mcg 1 inhalation QD and Albuterol HFA 2 inhalations Q 6 hours PRN (2) Type 2 diabetes mellitus without complication, without long-term current use of insulin: Code(s): E11.9 - Type 2 diabetes mellitus without complications Plan: Her HgbA1c was at 6.8% on her labs done last week (in-office HgbA1c was at 7.6% a few months ago) - goal is at least <7.5% based on her age and comorbidities Reinforced diabetic diet Continue Tradjenta 5 mg QD and Glimepiride 2 mg QD (she was not able to tolerate Metformin IR or ER in the past due to frequent diarrhea and loose stools) (3) Benign essential hypertension: Code(s): I10 - Essential (primary) hypertension Plan: Reinforced low sodium diet - goal is systolic BP of at least 130 to 140 mm or less Continue Furosemide 20 mg Q AM (4) Pure hypercholesterolemia: Code(s): E78.00 - Pure hypercholesterolemia, unspecified Plan: Results of her labs done last week reviewed and discussed with patient Reinforced low cholesterol diet Continue Rosuvastatin 10 mg QD Will recheck her labs and fasting lipids in 4 months for follow up (5) Acquired hypothyroidism: Code(s): E03.9 - Hypothyroidism, unspecified Plan: Her free T4 level is normal on her recent labs but her TSH level has increased significantly - suspect Hashimotos's Will send her for some additional labs for further evaluation, including thyroglobulin Ab and TPO levels Will also send her for a thyroid US for further evaluation Continue Levothyroxine 50 mcg QD for now Will recheck her TFTs in 4 months for follow up (6) Primary osteoarthritis of both knees: Comment: S/P right knee arthroplasty on 04/30/2019 S/P left knee arthroplasty on 11/20/2018 Code(s): M17.0 - Bilateral primary osteoarthritis of knee Plan: Continue Gabapentin 300 mg TID, Fentanyl patch 25 mcg Q 72 hours and Tramadol 50 mg 2 tablets 2 to 3 times a day as needed (Rx refilled) Follow up with orthopedics as scheduled (7) Neck pain: Code(s): M54.2 - Cervicalgia Plan: Patient is advised that with her history and symptom presentation, she likely has some degenerative disease of the cervical spine Will send her for cervical spine x-rays for further evaluation (8) 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: Code(s): Z86.718 - Personal history of other venous thrombosis and embolism Plan: DVT occurred back in 2018 with no recurrence since Continue Eliquis 5 mg BID (9) Vitamin D deficiency: Code(s): E55.9 - Vitamin D deficiency, unspecified Plan: Continue Vitamin D3 2000 units QD (10) Primary insomnia: Code(s): F51.01 - Primary insomnia Plan: Sleep hygiene reinforced Continue Trazodone 50 mg 1 to 2 tablets daily at bedtime as need (11) Obesity (BMI 30-39.9): Code(s): E66.9 - Obesity, unspecified Plan: Reinforced diet; exercise and weight loss are unrealistic at this point due to her chronic knee issues and poor mobility as well as poor exercise tolerance Plan Follow up in 4 months Orders: Orders Thyroglobulin Antibodies Today E06.3 - Autoimmune thyroiditis Thyroid Peroxidase Antibodies Today E06.3 - Autoimmune thyroiditis, R79.89 - Other specified abnormal findings of blood chemistry US thyroid Today E06.3 - Autoimmune thyroiditis XR cervical spine 3V Today M54.2 - Cervicalgia Complete Blood Count Auto Diff 4 Months D64.9 - Anemia, unspecified Lipid Panel 4 Months E78.00 - Pure hypercholesterolemia, unspecified Hemoglobin A1c 4 Months E11.9 - Type 2 diabetes mellitus without complications Microalbumin, Random (w Creat) 4 Months E11.9 - Type 2 diabetes mellitus without complications Thyroid Stimulating Hormone 4 Months E03.9 - Hypothyroidism, unspecified Comprehensive [place]. Panel Fast 4 Months E78.00 - Pure hypercholesterolemia, unspecified UA CC w/rflx Micro + Cult 4 Months R30.0 - Dysuria Vitamin B12 and Folate 4 Months E53.8 - Deficiency of other specified B group vitamins Vitamin D 25-OH Total 4 Months E55.9 - Vitamin D deficiency, unspecified Free T4 (Free Thyroxine) 4 Months E03.9 - Hypothyroidism, unspecified Medications: Refilled tramadol 100 mg (2 x 50 mg) PO TID 30 days PRN 180 tabs 0RF pain Coding Level of Care Code Est Pt Level 4 (19518) Complex EM visit Add On G2211 Diagnoses Chronic obstructive pulmonary disease, unspecified COPD type J44.9 COPD type: unspecified COPD Type 2 diabetes mellitus without complication, without long-term current use of insulin E11.9 Benign essential hypertension I10 Pure hypercholesterolemia E78.00 Acquired hypothyroidism E03.9 Primary osteoarthritis of both knees M17.0 Neck pain M54.2 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 Z86.718 Vitamin D deficiency E55.9 Primary insomnia F51.01 Obesity (BMI 30-39.9) E66.9
== END 2023-11-15 10:55 | disposition home or self-care (01) ==
PROVIDERS: PCP Internal Medicine; Visit Provider Internal Medicine
DX: J44.9 Chronic obstructive pulmonary disease, unspecified (principal); E11.9 Type 2 diabetes mellitus without complications; E66.9 Obesity, unspecified; Z68.36 Body mass index [BMI] 36.0-36.9, adult; I10 Essential (primary) hypertension; E78.00 Pure hypercholesterolemia, unspecified; E03.9 Hypothyroidism, unspecified; M17.0 Bilateral primary osteoarthritis of knee; M54.2 Cervicalgia; Z86.718 Personal history of other venous thrombosis and embolism; E55.9 Vitamin D deficiency, unspecified; F51.01 Primary insomnia
CPT/HCPCS: 99214; G2211

== ENCOUNTER 2023-12-11 11:04 | Outpatient (REF) | payer MEDICARE, MEDICAID, SELFPAY ==
--- NOTE | ~2023-12-11 | XR_ITS ---
EXAMINATION: XR CERVICAL SPINE CLINICAL INFORMATION: Patient states cracking in neck, history of C-spine injury. COMPARISON: None available. TECHNIQUE: 4 views of the cervical spine. FINDINGS: Diffuse demineralization. Straightening of the normal cervical lordosis. Mild anterolisthesis of C2 on C3, and C3 on C4. Mild retrolisthesis of C4 on C5, and of C5 on C6. Multilevel cervical spondylosis is most notable at C4-C5, C5-C6 and C6-C7 with severe loss of disc space height and hypertrophic change. Limited visualization of C7 due to overlying bone and soft tissues. XR/XR cervical spine 3V IMPRESSION: Advanced multilevel cervical spondylosis.
--- NOTE | ~2023-12-11 | US_ITS ---
EXAMINATION: US THYROID CLINICAL INFORMATION: Autoimmune thyroiditis. COMPARISON: None available. TECHNIQUE: Linear transducer grayscale and color Doppler examination with attention to the region of the thyroid. FINDINGS: SIZE: Measurements of the thyroid lobes and nodules are given in sagittal, anteroposterior and transverse dimensions respectively. Lobulated thyroid gland margins. Right Thyroid Lobe: 3.9 x 1.5 x 1.4 cm, volume 4.3 mL. Parenchyma: The gland echotexture is heterogeneous. Thyroid vascularity is normal. Left Thyroid Lobe: 3.0 x 1.3 x 1.1 cm, volume 2.2 mL. Parenchyma: The gland echotexture is heterogeneous. Thyroid vascularity is normal. Isthmus: 0.2 cm in maximum AP dimension. No focal thyroid nodule is seen. NODES: No lymphadenopathy is seen in the tissue surrounding the thyroid gland. US/US thyroid IMPRESSION: No suspicious thyroid nodules appreciated, although visualization of the thyroid gland is limited due to relatively low position in neck. Thyroid gland is heterogeneous in echotexture. ACR TI-RADS RECOMMENDATION REFERENCE: Ultrasound-guided fine-needle aspiration, followup ultrasound, no further follow up. * TR1 (0 point) and TR2 (2 points): No FNA or follow up. * TR3 (3 points): FNA if more than or equal to 2.5 cm in maximum dimension, followup ultrasound in 1, 3 and 5 years if 1.5 to 2.4 cm in maximum dimension. * TR4 (4-6 points): FNA if more than or equal to 1.5 cm in maximum dimension, followup ultrasound in 1, 2, 3 and 5 years if 1 to 1.4 cm in maximum dimension. * TR5 (more than or equal to 7 points): FNA if more than or equal to 1 cm in maximum dimension, followup ultrasound every year for 5 years if 0.5 to 0.9 cm in maximum dimension. * TR3, TR4 or TR5 nodules that are below the size threshold for followup receive no follow up.
== END 2023-12-11 11:05 | disposition home or self-care (01) ==
LOC: HO.US 11:04
PROVIDERS: PCP Internal Medicine; Visit Provider Internal Medicine
DX: E06.3 Autoimmune thyroiditis (principal); M54.2 Cervicalgia
CPT/HCPCS: 72040; 76536

== ENCOUNTER 2024-03-07 08:09 | Outpatient (REF) | payer MEDICARE, MEDICAID, SELFPAY ==
[2024-03-07 08:31] LABS: MANUAL DIFF FLAG NO
[2024-03-07 09:08] LABS: Basophils Percent Auto 0.5 % (0-2); Eosinophils Absolute Auto 0.2 X10*3/uL (0.0-0.4); Eosinophils Percent Auto 2.6 % (0-4); Hematocrit 38.8 % (37.0-47.0); Hemoglobin 12.3 g/dl (12.0-16.0); Imm Gran Abs Auto 0.03 X10*3/uL (0.00-0.03); Imm Gran Pct Auto 0.3 % (0.0-0.4); Lymphocytes Absolute Auto 1.7 X10*3/uL (1.2-4.9); Lymphocytes Percent Auto 19.9 % (20-40); Mean Corpuscular HGB Conc 31.7 g/dl (31.0-35.0); Mean Corpuscular Hemoglobin 31.1 pg (27.0-33.0); Mean Platelet Volume 10.5 fL (9.4-12.3); Monocytes Absolute Auto 0.6 X10*3/uL (0.1-1.2); Monocytes Percent Auto 6.4 % (2-11); Neutrophils Absolute Auto 6.1 x10*3/uL (2.0-8.3); Neutrophils Percent Auto 70.3 % (45-73); Platelet Count 176 X10*3/uL (160-400); Red Blood Count 3.96 X10*6/uL (4.20-5.50); Red Cell Distribution Width 13.3 % (11.0-16.0); White Blood Count 8.7 X10*3/uL (4.8-10.8)
[2024-03-07 09:30] LABS: Estimated Average Glucose 154 mg/dL; Hemoglobin A1C 164.2872 umol/L
[2024-03-07 09:43] LABS: Alanine Aminotransferase 11 U/L (0-31); Albumin Level 3.8 g/dL (3.5-5.0); Alkaline Phosphatase 82 U/L (39-117); Anion Gap 12 (12-20); Aspartate Amino Transferase 14 U/L (5-31); Bilirubin Total 0.3 mg/dL (0.0-1.0); Blood Urea Nitrogen 19 mg/dL (9-16); Calcium 9.7 mg/dL (8.4-10.2); Carbon Dioxide 28 mmol/L (22-29); Chloride 103 mmol/L (96-108); Cholesterol 117 mg/dL (<200); Estimated Glomerular Filt Rate > 60; Glucose Fasting 172 mg/dL (60-99); HDL Cholesterol 50 mg/dL (>40); LDL Cholesterol Calculated 39 mg/dL (<100); Potassium 4.4 mmol/L (3.3-5.1); Sodium 139 mmol/L (135-145); Total Protein 7.6 g/dL (6.5-8.0); Triglycerides 143 mg/dL (<150)
[2024-03-07 10:00] LABS: Appearance Urine Hazy; Color Urine Yellow; Glucose Urine UA Negative (Negative); Leukocyte Esterase Urine Small (1+) (Negative); Nitrite Urine Positive (Negative); Specific Gravity - Urine >= 1.030 (1.005-1.025); UMIC TRIGGER UACC YES; Urine Blood Negative (Negative); Urine Ketones Negative (Negative); Urine Protein Negative (Neg-Trace)
[2024-03-07 10:08] LABS: Free T4 (Free Thyroxine) 0.91 ng/dL (0.71-1.85); Thyroid Stimulating Hormone 10.37 uIU/mL (0.32-4.0)
[2024-03-07 10:12] LABS: Bacteria Urine 4+ (None Seen); Hyaline Casts Urine 0-2 /LPF (0-2); RBC Urine 0-2 /HPF (0-2); UACC Culture Trigger YES; WBC Urine >50 /HPF (0-5)
[2024-03-07 10:36] LABS: Microalbum/Creatinine Ratio Ur 10.8 ug/mg cr (<30)
[2024-03-07 10:38] LABS: Folate 6.5 ng/mL (> or = 4.0); Vitamin B12 242 pg/mL (200-900)
[2024-03-09 07:13] LABS: Thyroglobulin Antibodies 568 IU/mL (< or = 1); Thyroid Peroxidase Antibodies 299 IU/mL (<9)
== END 2024-03-07 08:10 | disposition home or self-care (01) ==
LOC: HO.LAB 08:09
PROVIDERS: PCP Internal Medicine; Visit Provider Internal Medicine
DX: E06.3 Autoimmune thyroiditis (principal); E11.9 Type 2 diabetes mellitus without complications; E03.9 Hypothyroidism, unspecified; E78.00 Pure hypercholesterolemia, unspecified; E53.8 Deficiency of other specified B group vitamins; E55.9 Vitamin D deficiency, unspecified; R79.89 Other specified abnormal findings of blood chemistry; D64.9 Anemia, unspecified; R30.0 Dysuria; R82.79 Other abnormal findings on microbiological examination of urine
CPT/HCPCS: 36415; 80053; 80061; 81001; 81003; 82043; 82306; 82570; 82607; 82746; 83036; 84439; 84443; 85025; 86376; 86800; 87086; 87088; 87186

== ENCOUNTER 2024-05-09 11:51 | Outpatient (AMB) | payer MEDICARE, MEDICAID, SELFPAY ==
[2024-05-09 11:52] VITALS: BP 122/70; PULSE 71; O2SAT 96
--- NOTE | 2024-05-09 11:52 | MHC.PC.OV ---
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 Required: No Accompanied by: Self / Same As Patient Allergies No Known Allergies Allergy (Unknown, Verified 05/09/24 12:28) Medication List - Last Reconciled 05/09/24 by Jensen Escamilla MD albuterol sulfate USE 1 VIAL IN NEBULIZER EVERY 6 HOURS - As needed for shortness of breath or wheezing albuterol sulfate 90 mcg/actuation 2 puffs inhalation Q4-6H PRN apixaban (Eliquis) 5 mg PO BID [BEDSIDE COMMODE As directed] cetirizine 10 mg PO DAILY PRN 90 days cholecalciferol (vitamin D3) 2,000 units PO DAILY fentanyl 25 mcg/hr 1 patch transdermal Q72H 15 days furosemide 20 mg PO DAILY gabapentin 300 mg PO TID glimepiride 2 mg PO QAM 90 days levothyroxine 50 mcg PO QAM 90 days linagliptin (Tradjenta) 5 mg PO DAILY lorazepam 0.5 mg PO TID PRN 30 days [NEBULIZER As directed] ropinirole 4 mg PO BEDTIME rosuvastatin 10 mg PO DAILY 90 days tramadol 100 mg (2 x 50 mg) PO TID PRN 30 days trazodone Take 1 to 2 tablets orally once a day at bedtime as needed 90 days Trelegy Ellipta 200-62.5-25 mcg (vuovnqkwbxr-[id number]) 1 inh inhalation DAILY NS [walker As directed] Tobacco use date assessed: 05/09/24 Last assessed Fall Risk: 05/09/24 Dental Screening Dental Screen Date: 05/09/24 Did you have a dental visit in the last 12 months?: Yes Did you have a dental problem in the last 6 months where you did not have access to dental care?: No Was dental information given to patient?: Patient has dentist HPI 4 month f/u HPI Details Patient comes in today for her follow up visit States the she feels okay She continues to experience chronic joint pains but states that she stopped using her Fentanyl patches a while back as she is afraid of continuing to use them States that she is currently only taking Tramadol to help control her knee and hip pain States that she has also not been taking her Lorazepam a while now she recalls feeling drowsy or loopy when she was taking it She denies any headaches or dizziness Denies any chest pains but states that she is still experiencing frequent chest congestion and chest tightness and SOB at times States that her symptoms improved somewhat with the Abx (Z-donald) that was called in for her a couple of weeks ago States that she still has to use her Albuterol inhaler often lately to relieve her respiratory symptoms No nausea/vomiting, no abdominal pain No change in bowel habits noted Needs a few of her Rx refilled States that she will also need her Tramadol Rx refilled in a few days She had her follow-up labs done last month - to discuss her results [facility] Medical History (Updated 05/10/24 @ 00:06 by Jensen Escamilla MD) Cervical spondylosis Kayleigh's thyroiditis 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 Atypical nevus of back Obesity (BMI 30-39.9) Benign paroxysmal vertigo Carpal tunnel syndrome of left wrist Primary insomnia Paresthesia of both feet Restless leg syndrome Primary osteoarthritis of both knees Vitamin D deficiency Acquired hypothyroidism Pure hypercholesterolemia Benign essential hypertension Closed displaced intertrochanteric fracture of left femur with routine healing COPD (chronic obstructive pulmonary disease) Type 2 diabetes mellitus without complication, without long-term current use of insulin Surgical History Status post left hip replacement Status post total knee replacement, bilateral History of colonoscopy History of surgery History of total left knee replacement History of total knee arthroplasty History of carpal tunnel release History of cholecystectomy History of elbow surgery History of cervical discectomy History of lumbar discectomy Family History Father No problems noted. Mother No problems noted. Social History Housing: House Alcohol intake: former Patient Tobacco Use Status: Former Tobacco user Tobacco use type: Cigarette e-Cigarette/Vaping Use: Never Used Second Hand Smoke Exposure: Yes service: Yes Current occupational status: retired Cognitive needs: Yes Hearing needs: Yes Vision needs: Yes Questionnaire PHQ-9 Over the last 2 weeks, how often have you been bothered by any of the following problems? 1. Little interest or pleasure in doing things: several days (loss of family member ) 2. Feeling down, depressed, or hopeless: not at all 3. Trouble falling or staying asleep, or sleeping too much: not at all 4. Feeling tired or having little energy: not at all 5. Poor appetite or overeating: not at all 6. Feeling bad about yourself - or that you are a failure or have let yourself or your family down: several days 7. Trouble concentrating on things, such as reading the newspaper or watching television: not at all 8. Moving or speaking so slowly that other people could have noticed. Or the opposite - being so fidgety or restless that you have been moving around a lot more than usual: several days 9. Thoughts that you would be better off or of hurting yourself in some way: not at all Total score: 3 Depression Screening Interpretation: Positive Depression Screening Follow-up: Existing condition and In treatment Depression Screening Done: Yes 16892 - PHQ-9 Billing: Yes Source: Developed by Drs. Be Jang, Kristel Bustamante, Govind Rene and colleagues, with an educational wendie from [employer]. Thrive Questionnaire Date Thrive assessed: 05/09/24 I am a: Patient What is your living situation today?: I have a steady place to live Within the past 12 months, did the food you bought not last and you didn't have the money to get more?: Never true Within the past 12 months, did you worry whether your food would run out before you got money to buy more?: Never true Do you have trouble paying for medicines?: No Do you have trouble getting transportation to medical appointments?: No Do you have trouble paying your heating and electricity bill?: No Do you have trouble taking care of your child, family member or friend?: No Do you have trouble with day-to-day activities such as bathing, preparing meals, shopping, managing finances, etc.?: No Are you currently unemployed and looking for a job?: No Are you interested in more education?: No Please select the resources that you would like help with: None Currently or been in a relationship where the following occur: No concerns reported THRIVE Score: 0 AUDIT C Alcohol Use Questionnaire (AUDIT-C) 1. How often do you have a drink containing alcohol?: Never 2. How many drinks containing alcohol do you have on a typical day when you are drinking?: 1 or 2 (0) 3. How often do you have six or more drinks on one occasion?: Never Total Score: 0 Score Reviewed/Action Taken: Yes JUNE-7 AMB Questionnaire JUNE-7 Date JUNE - 7 assessed: 05/09/24 Feeling nervous, anxious, or on edge: 0 = Not at all Not being able to stop or control worryin = Not at all Worrying too much about different things: 0 = Not at all Trouble relaxin = Not at all Being so restless that it is hard to sit still: 0 = Not at all Becoming easily annoyed or irritable: 0 = Not at all Feeling afraid as if something awful might happen: 0 = Not at all Total JUNE-7 score (0-4 normal; 5-9 mild; 10-14 moderate; 15-21 severe): 0 Source: Developed by Drs. Be Jang, Kristel Bustamante, Govind Rene and colleagues, with an educational wendie from [employer]. Review of Systems Const Denies chills, Reports difficulty sleeping, Reports fatigue, Denies fever(s) and Denies headache(s) ENT Denies dysphagia, Denies dizziness, Denies otalgia, Denies headache(s), Reports neck pain, Denies odynophagia and Denies sore throat Card Denies chest pain, Denies palpitations and Reports dyspnea on exertion Resp Reports chest congestion (chest feels tight at times), Reports cough (recurrent; coughs up thick whitish phlegm often), Reports dyspnea on exertion and Reports wheezing (at times) GI Denies abdominal pain, Denies constipation, Denies dysphagia, Denies heartburn, Denies diarrhea, Denies nausea, Denies odynophagia and Denies vomiting Denies difficulty voiding, Denies nocturia, Denies dysuria and Denies urinary urgency Musc Reports back pain, Reports arthralgias (right knee and right hip), Denies joint swelling and Reports neck pain Skin/Breast Denies rash Neuro Denies dizziness, Denies headache(s) and Reports restless legs (states that her current Rx help control her symptoms) Endo Reports fatigue and Denies palpitations Aller/Immun Reports wheezing (at times) Physical exam (Primary Care) Vital Signs: Last Vital Signs Pulse 71 05/09/24 11:52 BP 122/70 05/09/24 11:52 Pulse Ox 96 05/09/24 11:52 Oxygen Delivery Method Room Air 05/09/24 11:52 Tobacco/Smoking Status: Tobacco use Status Tobacco use date assessed 05/09/24 05/09/24 11:57 Patient Tobacco Use Status Former Tobacco user 05/09/24 11:57 Tobacco use type Cigarette 05/09/24 11:57 e-Cigarette/Vaping Use Never Used 05/09/24 11:57 PHQ-9: PHQ-9 Score PHQ-9: Total score 3 05/09/24 22:22 Depression Screening Interpretation: Positive Depression Screening Follow-up: Existing condition and In treatment Thrive Assessment: Date of Thrive Assessment Date Thrive assessed 05/09/24 05/09/24 11:57 Currently or been in a relationship where the following occur: No concerns reported Const General: no acute distress and alert HENMT Ears: TM's normal bilaterally and EAC's normal Throat: Yes posterior oropharynx normal and Yes tonsils normal (no TP congestion) Neck Neck: Yes no lymphadenopathy and Yes tender Thyroid: Thyroid normal Resp Auscultation: no rales, rhonchi (scattered) throughout, no wheezes, diminished lung sounds bilateral and bronchial breath sounds bilateral Cardio Rate: regular rate Rhythm: regular rhythm Heart sounds: no murmurs GI Palpation (GI): Soft to palpation and nontender Auscultation: normal bowel sounds General: Yes no CVA tenderness Back/Spine/Pelvis Back: no CVA tenderness Cervical Spine: Cervical spine tenderness Thoracic/Lumbar Spine: lumbar spinal tenderness Skin Rashes: no rashes Extrem General: Yes no clubbing, cyanosis or edema Left upper extremity: hand Details: tenderness Location: of the thumb, of the 2nd digit, of the 3rd digit, of the 4th digit and of the 5th digit Right lower extremity: hip/thigh Details: tenderness Location: of the hip and knee Details: tenderness; no swelling Left lower extremity: knee Details: tenderness; no swelling Results Reviewed Results Reviewed: Laboratory Tests 03/07/24 03/07/24 08:28 08:29 WBC 8.7 Hgb 12.3 Hct 38.8 Plt Count 176 D Sodium 139 Potassium 4.4 Creatinine 0.89 Estimated GFR > 60 Fasting Glucose 172 H Hemoglobin A1c % 7.0 H Calcium 9.7 AST 14 ALT 11 Triglycerides 143 Cholesterol 117 LDL Cholesterol, Calc 39 HDL Cholesterol 50 Vitamin B12 242 25-OH Vitamin D Total 39.0 TSH 10.37 H Free T4 0.91 Ur Specific [place] >= 1.030 H Urine Protein Negative Urine Glucose (UA) Negative Urine Blood Negative Urine Nitrite Positive H Ur Leukocyte Esterase Small (1+) H Microalb/Creat Ratio 10.8 Thyroglobulin Antibody 568 H Thyroid Peroxidase Ab 299 H Coding Level of Care Code Est Pt Level 4 (40504) Complex EM visit Add On G2211 Diagnoses COPD exacerbation J44.1 Type 2 diabetes mellitus without complication, without long-term current use of insulin E11.9 Benign essential hypertension I10 Pure hypercholesterolemia E78.00 Kayleigh's thyroiditis E06.3 Primary osteoarthritis of both knees M17.0 Cervical spondylosis M47.812 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 Z86.718 Vitamin D deficiency E55.9 Restless leg syndrome G25.81 Primary insomnia F51.01 Obesity (BMI 30-39.9) E66.9 Additional Codes PHQ-9 - 34406 - PHQ-9 Billing: Yes ([id number]) Assessment & Plan Assessment & Plan (1) COPD exacerbation: Code(s): J44.1 - Chronic obstructive pulmonary disease with (acute) exacerbation Category: Medical Plan: S/P Tx with Azithromycin x 5 days 1 to 2 weeks ago, with some improvement of her symptoms but patient currently still appears to be experiencing symptoms of COPD exacerbation Will start her empirically on Doxycycline 100 mg BID x 7 days Continue Trelegy Ellipta 200-62.5-25 mcg 1 inhalation QD and Albuterol HFA 2 inhalations Q 6 hours PRN Patient is advised to call if her respiratory symptoms do not improve or if they persist or get worse over the next week or two - may need to start her on oral Prednisone then (2) Type 2 diabetes mellitus without complication, without long-term current use of insulin: Code(s): E11.9 - Type 2 diabetes mellitus without complications Category: Medical Plan: Her HgbA1c was at 7.0% on her labs done last month (HgbA1c was previously at 6.8% a few months ago) - goal is at least <7.5% based on her age and comorbidities Reinforced diabetic diet Continue Tradjenta 5 mg QD and Glimepiride 2 mg QD (she was not able to tolerate Metformin IR or ER in the past due to frequent diarrhea and loose stools) (3) Benign essential hypertension: Code(s): I10 - Essential (primary) hypertension Category: Medical Plan: Reinforced low sodium diet - goal is systolic BP of at least 130 to 140 mm or less Continue Furosemide 20 mg Q AM (4) Pure hypercholesterolemia: Code(s): E78.00 - Pure hypercholesterolemia, unspecified Category: Medical Plan: Results of her labs done last month reviewed and discussed with patient Reinforced low cholesterol diet Continue Rosuvastatin 10 mg QD Will recheck her labs and fasting lipids in 4 months for follow up (5) Kayleigh's thyroiditis: Code(s): E06.3 - Autoimmune thyroiditis Category: Medical Plan: Her thyroglobulin Ab level and thyroid peroxidase level were both elevated on her labs done last month; TSH was also elevated, consistent with Kayleigh's thyroiditis Her free T4 level is normal Thyroid US done in December 2023 revealed no suspicious thyroid nodules appreciated, although visualization of the thyroid gland is limited due to its relatively low position in the neck. The thyroid gland is heterogeneous in echotexture Continue Levothyroxine 50 mcg QD Will recheck her TFTs in 4 months for follow up (6) Primary osteoarthritis of both knees: Comment: S/P right knee arthroplasty on 04/30/2019 S/P left knee arthroplasty on 11/20/2018 Code(s): M17.0 - Bilateral primary osteoarthritis of knee Category: Medical Plan: Continue Gabapentin 300 mg TID and Tramadol 50 mg 2 tablets 2 to 3 times a day as needed She used to also be on Fentanyl patch 25 mcg Q 72 hours but stopped using it on her own a few weeks ago as she is concerned about its potential side effects and dangers of dependence on the medication States that her symptoms are currently manageable on Tramadol and Gabapentin alone Follow up with orthopedics as scheduled (7) Cervical spondylosis: Code(s): M47.812 - Spondylosis without myelopathy or radiculopathy, cervical region Category: Medical Plan: X-rays of the cervical spine done back in December 2023 revealed findings consistent with advanced multilevel cervical spondylosis States that her neck pains are adequately controlled as well on her current Rx (8) 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: Code(s): Z86.718 - Personal history of other venous thrombosis and embolism Category: Medical Plan: Her DVT occurred back in 2018 with no recurrence since Continue Eliquis 5 mg BID (9) Vitamin D deficiency: Code(s): E55.9 - Vitamin D deficiency, unspecified Category: Medical Plan: Continue Vitamin D3 2000 units QD (10) Restless leg syndrome: Code(s): G25.81 - Restless legs syndrome Category: Medical Plan: Continue Ropinirole 4 mg Q HS (11) Primary insomnia: Code(s): F51.01 - Primary insomnia Category: Medical Plan: Sleep hygiene reinforced Continue Trazodone 50 mg 1 to 2 tablets Q HS PRN (12) Obesity (BMI 30-39.9): Code(s): E66.9 - Obesity, unspecified Category: Medical Plan: Reinforced diet; exercise and weight loss are unrealistic at this point due to her chronic knee issues and poor mobility as well as poor exercise tolerance Plan Follow up in 4 months Orders: Orders Complete Blood Count Auto Diff 4 Months D64.9 - Anemia, unspecified Comprehensive [place]. Panel Fast 4 Months E78.00 - Pure hypercholesterolemia, unspecified Lipid Panel 4 Months E78.00 - Pure hypercholesterolemia, unspecified Microalbumin, Random (w Creat) 4 Months E11.9 - Type 2 diabetes mellitus without complications UA CC w/rflx Micro + Cult 4 Months R30.0 - Dysuria Vitamin D 25-OH Total 4 Months E55.9 - Vitamin D deficiency, unspecified Free T4 (Free Thyroxine) 4 Months E03.9 - Hypothyroidism, unspecified Hemoglobin A1c 4 Months E11.9 - Type 2 diabetes mellitus without complications Thyroid Stimulating Hormone 4 Months E03.9 - Hypothyroidism, unspecified Vitamin B12 and Folate 4 Months E53.8 - Deficiency of other specified B group vitamins Medications: New doxycycline hyclate 100 mg PO BID 7 days 14 caps 0RF Refilled glimepiride administer with breakfast 2 mg PO QAM 90 days 90 tabs 1RF E11.9 - Type 2 diabetes mellitus without complications gabapentin 300 mg PO TID 270 caps 3RF M17.0 - Bilateral primary osteoarthritis of knee, R20.2 - Paresthesia of skin tramadol 100 mg (2 x 50 mg) PO TID 30 days PRN 180 tabs 0RF pain apixaban (Eliquis) 5 mg PO BID 120 tabs 1RF Discontinued fentanyl 25 mcg/hr Partial Fill upon patient request Discontinued Reason: Patient no longer taking 1 patch transdermal Q72H 15 days 5 ea 0RF G89.4 - Chronic pain syndrome, M25.552 - Pain in left hip, M54.50 - Low back pain, unspecified lorazepam Discontinued Reason: Patient no longer taking 0.5 mg PO TID 30 days PRN 90 tabs 1RF anxiety
== END 2024-05-09 12:42 | disposition home or self-care (01) ==
PROVIDERS: PCP Internal Medicine; Visit Provider Internal Medicine
DX: J44.1 Chronic obstructive pulmonary disease with (acute) exacerbation (principal); E11.9 Type 2 diabetes mellitus without complications; E66.9 Obesity, unspecified; I10 Essential (primary) hypertension; E78.00 Pure hypercholesterolemia, unspecified; E06.3 Autoimmune thyroiditis; M17.0 Bilateral primary osteoarthritis of knee; M47.812 Spondylosis without myelopathy or radiculopathy, cervical region; Z86.718 Personal history of other venous thrombosis and embolism; E55.9 Vitamin D deficiency, unspecified; G25.81 Restless legs syndrome; F51.01 Primary insomnia

== ENCOUNTER → 2024-05-09 11:51 | Outpatient (BNVA) | payer MEDICARE, MEDICAID, SELFPAY | PROVIDERS: PCP Internal Medicine; Visit Provider Internal Medicine | DX: J44.1 Chronic obstructive pulmonary disease with (acute) exacerbation (principal); E11.9 Type 2 diabetes mellitus without complications; I10 Essential (primary) hypertension; E78.00 Pure hypercholesterolemia, unspecified; E06.3 Autoimmune thyroiditis; M17.0 Bilateral primary osteoarthritis of knee; E55.9 Vitamin D deficiency, unspecified; F51.01 Primary insomnia; E66.9 Obesity, unspecified; G25.81 Restless legs syndrome; Z86.718 Personal history of other venous thrombosis and embolism | CPT/HCPCS: 96127; 99212 ==